=== PATIENT | female | born 1965 | race Caucasian/White ===

== ENCOUNTER → 2018-10-07 13:53 | Outpatient (CLI) | payer OTHER, SELFPAY ==
--- NOTE | 2018-10-07 | DI.MG.S_ITS ---
BILATERAL DIGITAL SCREENING MAMMOGRAM 3D/2D WITH CAD: 10/07/2018 CLINICAL: Routine screening. Family history of breast cancer. Comparison is made to exams dated: 06/28/2017 mammogram, 11/04/2015 mammogram, and 11/04/2014 mammogram - . The tissue of both breasts is heterogeneously dense. This may lower the sensitivity of mammography. Current study was also evaluated with a Computer Aided Detection (CAD) system. There are mole markers on the right breast. There is a mole marker on the left breast. There is a linear scar marker on the left breast. No significant masses, calcifications, or other findings are seen in either breast. There has been no significant interval change. IMPRESSION: NEGATIVE There is no mammographic evidence of malignancy. A 1 year screening mammogram is recommended. This exam was interpreted at Station ID: [id number]. NOTE: For mammograms, a report in lay terms will be sent to the patient. Approximately 15% of breast malignancies will not be visualized mammographically. In the management of a palpable breast mass, a negative mammogram must not discourage biopsy of a clinically suspicious lesion. Electronically Signed By: Beck Forte M.D. ecl/:10/07/2018 20:24:51 letter sent: Normal Exam ACR BI-RADS Category 1: Negative [id number]
== END ==
PROVIDERS: PCP Family Medicine; Visit Provider Family Medicine
DX: Z12.31 Encounter for screening mammogram for malignant neoplasm of breast (principal); Z80.3 Family history of malignant neoplasm of breast
CPT/HCPCS: 77063; 77067

== ENCOUNTER → 2018-11-19 08:43 | Outpatient (CLI) | payer OTHER, SELFPAY ==
[2018-11-19 09:24] LABS: Add Manual Diff / Slide Review NO; Basophils Absolute Auto 100 /uL (0-100); Basophils Percent Auto 1.2 % (0-2); Eosinophils Absolute Auto 300 /uL (0-450); Eosinophils Percent Auto 5.3 % (2-4); Hemoglobin 12.6 g/dL (12.0-16.0); Lymphocytes Absolute Auto 2200 /uL (1100-4500); Lymphocytes Percent Auto 45.2 % (25-40); Mean Corpuscular HGB Conc 33.9 % (30-36); Mean Corpuscular Hemoglobin 29.8 PG (26-34); Mean Corpuscular Volume 87.8 fL (80-100); Monocytes Absolute Auto 300 /uL (0-900); Monocytes Percent Auto 7.1 % (3-14); Neutrophils Absolute Auto 2000 /uL (1500-7000); Neutrophils Percent Auto 41.2 % (50-75); Platelet Count 185 X10^3/uL (150-400); Red Blood Cell Count 4.21 X10^6/uL (4.0-5.2); Red Cell Distribution Width 14.9 % (11.6-14.8); White Blood Cell Count 4.9 X10^3/uL (4.5-11.0)
[2018-11-19 09:39] LABS: Alanine Aminotransferase 15 IU/L (9-52); Albumin 4.4 g/dL (3.5-5.0); Albumin Globulin Ratio 1.4 (1.0-2.8); Alkaline Phosphatase 55 U/L (38-126); Aspartate Aminotransferase 17 IU/L (14-36); BUN Creatinine Ratio 25.7 (6-22); Bilirubin Total 1.3 mg/dL (0.2-1.3); Blood Urea Nitrogen 18 mg/dL (7-17); Calcium 9.9 mg/dL (8.4-10.2); Carbon Dioxide 26 mmol/L (22-32); Chloride 106 mmol/L (98-107); Cholesterol 252 mg/dL (140-199); Estimated Glomerular Filt Rate > 60.0 mL/min (>60); Globulin 3.2 g/dL (1.7-4.1); Glucose 97 mg/dL (70-100); HDL Cholesterol 55 mg/dL (40-60); HEMOLYSIS < 15 (0-50); LDL Cholesterol Calculated 180 mg/dL (<100); Potassium 3.9 mmol/L (3.4-5.1); Sodium 141 mmol/L (137-145); Total Protein 7.6 g/dL (6.3-8.2); Triglycerides 85 mg/dL (35-150)
== END ==
PROVIDERS: PCP Family Medicine; Visit Provider Family Medicine
DX: E78.2 Mixed hyperlipidemia (principal); R89.9 Unspecified abnormal finding in specimens from other organs, systems and tissues; Z13.1 Encounter for screening for diabetes mellitus
CPT/HCPCS: 36415; 80053; 80061; 84443; 85025

== ENCOUNTER → 2019-04-01 15:06 | Outpatient (CLI) | payer OTHER, SELFPAY | PROVIDERS: PCP Family Medicine; Visit Provider Family Medicine | DX: R39.89 Other symptoms and signs involving the genitourinary system (principal) | CPT/HCPCS: 87086 ==

== ENCOUNTER → 2019-04-02 09:58 | Outpatient (CLI) | payer OTHER, SELFPAY ==
[2019-04-02 10:32] LABS: Add Manual Diff / Slide Review NO; Basophils Absolute Auto 100 /uL (0-100); Basophils Percent Auto 1.1 % (0-2); Eosinophils Absolute Auto 300 /uL (0-450); Eosinophils Percent Auto 5.5 % (2-4); Hematocrit 37.6 % (36-46); Hemoglobin 12.5 g/dL (12.0-16.0); Lymphocytes Absolute Auto 1600 /uL (1100-4500); Lymphocytes Percent Auto 33.7 % (25-40); Mean Corpuscular HGB Conc 33.3 % (30-36); Mean Corpuscular Hemoglobin 29.3 PG (26-34); Mean Corpuscular Volume 87.8 fL (80-100); Monocytes Absolute Auto 300 /uL (0-900); Monocytes Percent Auto 6.2 % (3-14); Neutrophils Absolute Auto 2600 /uL (1500-7000); Neutrophils Percent Auto 53.5 % (50-75); Platelet Count 201 X10^3/uL (150-400); Red Blood Cell Count 4.28 X10^6/uL (4.0-5.2); Red Cell Distribution Width 14.3 % (11.6-14.8); White Blood Cell Count 4.9 X10^3/uL (4.5-11.0)
[2019-04-02 11:47] LABS: Alanine Aminotransferase 9 IU/L (9-52); Albumin 4.3 g/dL (3.5-5.0); Albumin Globulin Ratio 1.4 (1.0-2.8); Alkaline Phosphatase 55 U/L (38-126); Aspartate Aminotransferase 21 IU/L (14-36); Blood Urea Nitrogen 14 mg/dL (7-17); Calcium 10.3 mg/dL (8.4-10.2); Carbon Dioxide 29 mmol/L (22-32); Chloride 105 mmol/L (98-107); Cholesterol 219 mg/dL (140-199); Estimated Glomerular Filt Rate > 60.0 mL/min (>60); Glucose 95 mg/dL (70-100); HDL Cholesterol 64 mg/dL (40-60); HEMOLYSIS < 15 (0-50); LDL Cholesterol Calculated 137 mg/dL (<100); Potassium 4.5 mmol/L (3.4-5.1); Sodium 141 mmol/L (137-145); Total Protein 7.3 g/dL (6.3-8.2); Triglycerides 90 mg/dL (35-150)
== END ==
PROVIDERS: PCP Family Medicine; Visit Provider Family Medicine
DX: E78.2 Mixed hyperlipidemia (principal)
CPT/HCPCS: 36415; 80053; 80061; 84443; 85025

== ENCOUNTER → 2019-04-11 07:50 | Outpatient (CLI) | payer OTHER, SELFPAY ==
--- NOTE | 2019-04-11 07:53 | DI.US.S_ITS ---
PROCEDURE: US PELVIC COMPLETE INDICATIONS: PELVIC PAIN TECHNIQUE: Real-time scanning was performed of the pelvic organs, with image documentation. Additional endovaginal scanning was necessary due to incomplete visualization of the adnexal and endometrial structures by transabdominal scanning. COMPARISON: [facility], US, PELVIC COMPLETE, 06/16/2015, 10:45. [facility], CT, ABDOMEN/PELVIS WITH CONTRAST, 05/01/2017, 8:51. FINDINGS: Transabdominal scanning: Limited scanning through the kidneys shows no hydronephrosis. No pathologic free abdominal or pelvic fluid. Endovaginal scanning: Uterus: Uterus is normal in size at 6.5 x 3.6 x 4.0 cm. The endometrium is ill defined and no measurement was able to be obtained. Submucosal fibroid again noted which is similar in size measuring 1.8 x 1.7 x 1.6 cm. Posterior intramural fibroid redemonstrated also similar in size measuring 1.6 x 1.5 x 1.7 cm. Cyst Ovaries: Ovaries are normal in size measuring 3.0 x 1.3 x 1.7 cm on the right and 2.6 x 1.3 x 1.7 cm on the left. There are small, non-shadowing punctate echogenic foci involving the periphery of both the right and left ovaries. Simple right paraovarian cyst measuring 1.6 x 1.2 x 1.5 cm. IMPRESSION: 1. Endometrial complex is ill defined and unable to be accurately measured. 2. Stable appearance of small intramural and submucosal fibroids. 3. Punctate peripheral nodular filling echogenic foci involving the ovaries bilaterally which are likely of no clinical significance. Recommend followup ultrasound in 3 months to assess for temporal stability. 4. Simple right paraovarian cyst. Dictated by: Jonathan GATICA Interpreted: Jessica Storey MD on 04/11/2019 at 9:29 Approved by: Jessica Storey M.D. on 04/11/2019 at 14:40
== END ==
PROVIDERS: Family Provider Family Medicine; PCP Family Medicine; Visit Provider Obstetrics & Gynecology
DX: R10.2 Pelvic and perineal pain (principal); N83.291 Other ovarian cyst, right side; D25.1 Intramural leiomyoma of uterus; D25.0 Submucous leiomyoma of uterus; Z87.42 Personal history of other diseases of the female genital tract
CPT/HCPCS: 76830; 76856

== ENCOUNTER → 2019-05-01 07:43 | Outpatient (CLI) | payer OTHER, SELFPAY ==
--- NOTE | 2019-05-01 07:44 | DI.ECHO.S_ITS ---
[place] [facility]---------+ [facility] +---------+ : : [address] : : : : [id number] : : : : Phone: [phone]+ Echocardiogram Report + + :Name: JANNET BOWLES Study Date: 05/01/2019 Height: 66 in : :[facility] Weight: 154 lb : : Gender: Female BSA: 1.8 m2 : :: 1965 Age: 53 yrs BP: 118/82 mmHg: :Reason For Study: Chest pain : : Performed By: Angelica Cadet : :Referring: JOON KRISHNA : + + Interpretation Summary 1) Normal left ventricular thickness, size, wall motion, and systolic function (EF 60-65%). 2) Normal right ventricular size and function. 3) No significant valvular abnormalities. 4) No prior Echo available for comparison. Procedure: A two-dimensional transthoracic echocardiogram with color flow and Doppler was performed. The study quality was technically adequate. There is no prior echocardiogram noted for this patient. The patient was in normal sinus rhythm during the exam. Left Ventricle: The left ventricle is normal in size, wall thickness, and systolic function without any focal wall motion abnormalities. The ejection fraction is estimated to be 60-65%. Diastolic parameters suggest probable normal left ventricular diastolic function and normal filling pressures. Right Ventricle: The right ventricle grossly appears normal in size with probable normal systolic function. Atria: The left atrial size is normal. Right atrial size is normal. The interatrial septum is intact with no evidence for an atrial septal defect. Mitral Valve: The mitral valve is normal in structure and function. There is trace mitral regurgitation. Aortic Valve: The aortic valve is not well visualized. The aortic valve opens well. There is no aortic valve stenosis. No aortic regurgitation is present. Tricuspid Valve: The tricuspid valve leaflets are thin and pliable. There is mild tricuspid regurgitation. The right ventricular systolic pressure is estimated to be at least 19 mmHg based on an estimated right atrial pressure of 3 mm Hg. Pulmonic Valve: The pulmonic valve is not well seen, but is grossly normal. There is no pulmonic valvular regurgitation. Great Vessels: The aortic root is normal size. The dimensions of the ascending aorta are normal. The aortic arch is normal in size. The IVC is of normal diameter and collapses greater than 50% with a sniff. This suggests a low right atrial pressure of 3 mm Hg. Pericardium/ Pleura There is no pericardial effusion. There is no pleural effusion. MMode/2D Measurements & Calculations LVIDd: 4.6 cm Ao root diam: 3.4 cm LVIDs: 2.4 cm Aortic Jxn: 2.7 cm FS: 48.5 % asc Aorta Diam: 3.0 cm EPSS: 0.20 cm Ao Arch Diam (Prox Trans): 2.5 cm IVSd: 0.85 cm LVPWd: 0.87 cm LV phillips. diameter/BSA (cm/m^2): 2.6 LV sys. diameter/BSA (cm/m^2): 1.3 LA dimension: 3.0 cm RA long axis: 4.5 cm LA A2 area: 19.0 cm2 RA area: 13.8 cm2 LA A4 area: 14.7 cm2 RA vol: 36.3 ml LA length (vol): 4.5 cm RA : 20.3 ml/m2 LA vol: 53.0 ml IVC diam: 1.6 cm LA vol index: 29.6 ml/m2 RVDd major: 5.7 cm RVD1 (basal): 3.2 cm RVD2 (mid): 2.8 cm Doppler Measurements & Calculations Ao V2 max: 115.9 cm/sec MV E max tab: 56.8 cm/sec Ao V2 mean: 74.6 cm/sec MV A max tab: 60.5 cm/sec Ao max P.4 mmHg MV E/A: 0.94 Ao mean P.7 mmHg Med Peak E' Tab: 5.4 cm/sec Ao V2 VTI: 25.7 cm E/E' med: 10.6 Lat Peak E' Tab: 7.4 cm/sec E/E' lat: 7.7 E/e' average: 9.1 MV dec time: 0.26 sec MV P1/2t: 77.8 msec TR max tab: 201.3 cm/sec MV P1/2t max tab: 56.5 cm/sec TR max P.2 mmHg MVA(P1/2t): 2.8 cm2 PA V2 max: 65.8 cm/sec PA V2 mean: 38.8 cm/sec PA mean P.77 mmHg PA Accel Time: 0.16 sec Reading Physician:10:49 AM
--- NOTE | 2019-05-01 08:50 | PM.TREADMILL ---
Cardiac Stress Test Report Referral & Results Date Patient Seen: 05/01/19 Time Patient Seen: 08:30 Requesting provider: Tj Villagran Indication: Chest tightness Rest ECG: NSR Procedure Note: Today following both written and verbal informed consent, the patient was exercised according to a standard Tod protocol. The patient exercised for a total of 12 minutes 30 seconds achieving a maximum heart rate of 178. Patient's maximum systolic blood pressure was 180. This was an estimated 12.8 METs. No signs or symptoms of angina. No change in rhythm during the test. Minimal ST deviations that resolved rapidly with rest. Normal heart rate/BP response with exercise and rapid resolution at rest. Excellent exercise capacity (for comparison, DELIA 0% for active 55yo is only 7:30). Impression: Low probability for ischemia. Ferreira treadmill score of 7 predicts 97% survival rate at 5 years. Please note: Actual ECG tracings can be found in the PACS system.
== END ==
PROVIDERS: Family Provider Family Medicine; PCP Family Medicine; Visit Provider Family Medicine
DX: I07.1 Rheumatic tricuspid insufficiency (principal); R07.89 Other chest pain; E78.2 Mixed hyperlipidemia
CPT/HCPCS: 93016; 93017; 93018; 93306

== ENCOUNTER → 2019-05-07 11:57 | Outpatient (CLI) | payer OTHER, SELFPAY ==
[2019-05-07 12:09] LABS: Bacteria Urine None Seen; RBC Urine None Seen (0-5/HPF); WBC Urine None Seen (0-5/HPF)
[2019-05-07 12:33] LABS: BUN Creatinine Ratio 25.7 (6-22); Blood Urea Nitrogen 18 mg/dL (7-17); Calcium 10.2 mg/dL (8.4-10.2); Carbon Dioxide 27 mmol/L (22-32); Chloride 104 mmol/L (98-107); Cholesterol 274 mg/dL (140-199); Estimated Glomerular Filt Rate > 60.0 mL/min (>60); Glucose 98 mg/dL (70-100); HDL Cholesterol 68 mg/dL (40-60); HEMOLYSIS < 15 (0-50); LDL Cholesterol Calculated 182 mg/dL (<100); Sodium 141 mmol/L (137-145); Triglycerides 118 mg/dL (35-150)
[2019-05-07 12:52] LABS: Appearance Urine UA CLEAR; Bilirubin Urine UA NEGATIVE (NEGATIVE); Color Urine UA YELLOW; Glucose Urine UA NEGATIVE (Negative); Ketones Urine UA NEGATIVE (NEGATIVE); Leukocyte Esterase Urine UA NEGATIVE (NEGATIVE); Nitrite Urine UA NEGATIVE (Negative); Occult Blood Urine UA NEGATIVE (Negative); Protein Urine UA NEGATIVE (Negative); Urobilinogen Urine UA 0.2 E.U./dL (0.2)
[2019-05-07 12:53] LABS: pH Urine UA 5.5 (4.5-8.0)
[2019-05-07 12:59] LABS: Culture Indicated Urine Cult Not Indicated; Urine Comments Microscopic Normal
== END ==
PROVIDERS: PCP Family Medicine; Visit Provider Family Medicine
DX: E78.2 Mixed hyperlipidemia (principal)
CPT/HCPCS: 36415; 80048; 80061; 81001

== ENCOUNTER → 2019-11-20 15:30 | Outpatient (CLI) | payer OTHER, SELFPAY ==
[2019-11-20 16:22] LABS: Appearance Urine UA SL CLOUDY; Bilirubin Urine UA NEGATIVE (NEGATIVE); Color Urine UA YELLOW; Glucose Urine UA NEGATIVE (Negative); Ketones Urine UA NEGATIVE (NEGATIVE); Leukocyte Esterase Urine UA 2+ (NEGATIVE); Nitrite Urine UA NEGATIVE (Negative); Occult Blood Urine UA 1+ (Negative); Protein Urine UA NEGATIVE (Negative); Urobilinogen Urine UA 0.2 E.U./dL (0.2)
[2019-11-20 16:23] LABS: pH Urine UA 5.5 (4.5-8.0)
[2019-11-20 16:30] LABS: Amorphous Sediment Urine 1+; Bacteria Urine Many (>30); Culture Indicated Urine Specimen Cultured; Mucus Urine 1+ (Negative); RBC Urine 1-5/HPF (0-5/HPF); Squamous Epithelial Cell Urine 1-5 /HPF (0-5/HPF); WBC Urine >100/HPF (0-5/HPF)
== END ==
PROVIDERS: PCP Family Medicine; Referring Provider Urology; Visit Provider Urology
DX: R35.0 Frequency of micturition (principal)
CPT/HCPCS: 81001; 87077; 87086; 87186

== ENCOUNTER → 2019-12-05 09:02 | Outpatient (CLI) | payer OTHER, SELFPAY ==
[2019-12-05 09:35] LABS: RBC Urine None Seen (0-5/HPF)
[2019-12-05 10:05] LABS: Appearance Urine UA CLEAR; Bilirubin Urine UA NEGATIVE (NEGATIVE); Color Urine UA YELLOW; Glucose Urine UA NEGATIVE (Negative); Ketones Urine UA NEGATIVE (NEGATIVE); Leukocyte Esterase Urine UA NEGATIVE (NEGATIVE); Nitrite Urine UA NEGATIVE (Negative); Occult Blood Urine UA NEGATIVE (Negative); Protein Urine UA NEGATIVE (Negative); Specific Gravity Urine UA >=1.030 (1.000-1.035); Urobilinogen Urine UA 0.2 E.U./dL (0.2)
[2019-12-05 10:15] LABS: Bacteria Urine Few (2-10); Culture Indicated Urine Cult Not Indicated; Hyaline Casts Urine 0-1/LPF; Mucus Urine 1+ (Negative); Squamous Epithelial Cell Urine 1-5 /HPF (0-5/HPF); WBC Urine 0-1/HPF (0-5/HPF)
== END ==
PROVIDERS: PCP Family Medicine; Referring Provider Urology; Visit Provider Urology
DX: R35.0 Frequency of micturition (principal)
CPT/HCPCS: 81001

== ENCOUNTER → 2020-04-24 12:10 | Outpatient (CLI) | payer OTHER, SELFPAY | PROVIDERS: PCP Family Medicine; Visit Provider Physician Assistant | DX: R30.0 Dysuria (principal) | CPT/HCPCS: 87086 ==

== ENCOUNTER → 2020-05-06 09:54 | Outpatient (CLI) | payer OTHER, SELFPAY ==
[2020-05-06 10:00] LABS: Bacteria Urine None Seen
[2020-05-06 11:25] LABS: Appearance Urine UA CLEAR; Bilirubin Urine UA NEGATIVE (NEGATIVE); Color Urine UA YELLOW; Glucose Urine UA NEGATIVE (Negative); Ketones Urine UA NEGATIVE (NEGATIVE); Leukocyte Esterase Urine UA NEGATIVE (NEGATIVE); Nitrite Urine UA NEGATIVE (Negative); Occult Blood Urine UA 1+ (Negative); Protein Urine UA NEGATIVE (Negative); Urobilinogen Urine UA 0.2 E.U./dL (0.2)
[2020-05-06 11:28] LABS: pH Urine UA 5.5 (4.5-8.0)
[2020-05-06 11:30] LABS: Add Manual Diff / Slide Review NO; Basophils Absolute Auto 100 /uL (0-100); Basophils Percent Auto 0.8 % (0-2); Eosinophils Absolute Auto 300 /uL (0-450); Eosinophils Percent Auto 3.5 % (2-4); Hematocrit 33.8 % (36-46); Lymphocytes Absolute Auto 2300 /uL (1100-4500); Lymphocytes Percent Auto 30.1 % (25-40); Mean Corpuscular HGB Conc 32.5 % (30-36); Mean Corpuscular Hemoglobin 27.8 PG (26-34); Mean Corpuscular Volume 85.7 fL (80-100); Monocytes Absolute Auto 600 /uL (0-900); Neutrophils Absolute Auto 4300 /uL (1500-7000); Neutrophils Percent Auto 57.6 % (50-75); Platelet Count 310 X10^3/uL (150-400); Red Blood Cell Count 3.95 X10^6/uL (4.0-5.2); Red Cell Distribution Width 14.1 % (11.6-14.8); White Blood Cell Count 7.5 X10^3/uL (4.5-11.0)
[2020-05-06 11:33] LABS: Culture Indicated Urine Specimen Cultured; RBC Urine 1-5/HPF (0-5/HPF); WBC Urine 5-10/HPF (0-5/HPF)
[2020-05-06 12:02] LABS: Blood Urea Nitrogen 15 mg/dL (7-17); Calcium 9.8 mg/dL (8.4-10.2); Carbon Dioxide 28 mmol/L (22-32); Chloride 106 mmol/L (98-107); Cholesterol 238 mg/dL (140-199); Estimated Glomerular Filt Rate 57.4 mL/min (>60); Glucose 103 mg/dL (70-100); HDL Cholesterol 40 mg/dL (40-60); HEMOLYSIS < 15 (0-50); LDL Cholesterol Calculated 170 mg/dL (<100); Sodium 140 mmol/L (137-145); Triglycerides 142 mg/dL (35-150)
== END ==
PROVIDERS: PCP Family Medicine; Referring Provider Family Medicine; Visit Provider Family Medicine
DX: N30.01 Acute cystitis with hematuria (principal); E78.2 Mixed hyperlipidemia
CPT/HCPCS: 36415; 80048; 80061; 81001; 85025; 87086

== ENCOUNTER → 2020-05-18 14:06 | Outpatient (CLI) | payer OTHER, SELFPAY ==
--- NOTE | 2020-05-18 14:08 | DI.RAD.S_ITS ---
PROCEDURE: XR DEXA AXIAL SKELETON INDICATIONS: Routine screening COMPARISON: None. FINDINGS: This blank DEXA report has been sent in error by the PACS system. The correct and complete report will be forthcoming in 1-2 days. Thank you for your patience and understanding. Dictated by: Ro Virk MD, PhD on 05/18/2020 at 17:21 Approved by: Ro Virk MD, PhD on 05/18/2020 at 17:22
== END ==
PROVIDERS: PCP Family Medicine; Referring Provider Family Medicine; Visit Provider Family Medicine
DX: Z13.820 Encounter for screening for osteoporosis (principal); M81.0 Age-related osteoporosis without current pathological fracture; Z78.0 Asymptomatic menopausal state; Z82.62 Family history of osteoporosis
CPT/HCPCS: 77080

== ENCOUNTER → 2020-06-08 13:05 | Outpatient (CLI) | payer OTHER, SELFPAY ==
[2020-06-08 13:29] LABS: Hemoglobin A1C% w Est Avg Glu 5.8 % (4.0-6.0)
[2020-06-08 14:22] LABS: BUN Creatinine Ratio 14.6 (6-22); Blood Urea Nitrogen 13 mg/dL (7-17); Carbon Dioxide 29 mmol/L (22-32); Chloride 106 mmol/L (98-107); Cholesterol 199 mg/dL (140-199); Estimated Glomerular Filt Rate > 60.0 mL/min (>60); Glucose 103 mg/dL (70-100); HDL Cholesterol 54 mg/dL (40-60); HEMOLYSIS < 15 (0-50); LDL Cholesterol Calculated 119 mg/dL (<100); Potassium 4.6 mmol/L (3.4-5.1); Sodium 140 mmol/L (137-145); Triglycerides 128 mg/dL (35-150)
== END ==
PROVIDERS: PCP Family Medicine; Referring Provider Family Medicine; Visit Provider Family Medicine
DX: E78.2 Mixed hyperlipidemia (principal)
CPT/HCPCS: 36415; 80048; 80061; 83036

== ENCOUNTER → 2020-08-16 15:55 | Outpatient (CLI) | payer OTHER, SELFPAY ==
--- NOTE | 2020-08-16 16:01 | DI.RAD.S_ITS ---
PROCEDURE: XR HIP W PEL IF DONE RT 2V INDICATIONS: right hip pain TECHNIQUE: AP pelvis with lateral view(s) of the right hip(s). COMPARISON: None. FINDINGS: Bones: No fractures or dislocations. Pelvic ring appears intact. No suspicious bony lesions. Soft tissues: The visualized bowel gas pattern is normal. No suspicious soft tissue calcifications. IMPRESSION: No acute fracture. No osseous lesion. If symptoms and/or clinical suspicion for pathology persist, further assessment with repeat, or advanced imaging (e.g., CT, MRI, or bone scan) may be helpful for further assessment. Dictated by: Kika Ochoa M.D. on 08/16/2020 at 16:39 Approved by: Kika Ochoa M.D. on 08/16/2020 at 16:39
== END ==
PROVIDERS: PCP Nurse Practitioner Family; Referring Provider Family Medicine; Visit Provider Family Medicine
DX: S76.011A Strain of muscle, fascia and tendon of right hip, initial encounter (principal); M25.551 Pain in right hip
CPT/HCPCS: 73502

== ENCOUNTER → 2020-09-02 12:15 | Outpatient (CLI) | payer OTHER, SELFPAY ==
--- NOTE | 2020-09-02 12:16 | DI.RAD.S_ITS ---
PROCEDURE: XR LUMBAR SPINE 2-3V INDICATIONS: back pain TECHNIQUE: 3 views of the lumbar spine were acquired. COMPARISON: [facility], , L-SPINE 2-3 VIEWS, 06/16/2008, 17:41. FINDINGS: Bones: Levocurvature is present. No fracture. Multilevel degenerative endplate sclerosis and spurring. Diffuse facet arthropathy. Mild narrowing of the L3-L4 and L4-L5 disc spaces. Soft tissues: Right upper quadrant postsurgical changes from clinically reported right nephrectomy IMPRESSION: Levocurvature Mild diffuse spondylosis and facet arthropathy. This is mildly progressed since 06/16/08. Dictated by: Viral Katz M.D. on 09/02/2020 at 13:45 Approved by: Viral Katz M.D. on 09/02/2020 at 13:48
== END ==
PROVIDERS: PCP Nurse Practitioner Family; Referring Provider Nurse Practitioner Family; Visit Provider Nurse Practitioner Family
DX: M54.5 Low back pain (principal); M47.816 Spondylosis without myelopathy or radiculopathy, lumbar region; Z90.5 Acquired absence of kidney
CPT/HCPCS: 72100

== ENCOUNTER 2020-09-13 10:09 | Emergency (ER) | payer OTHER, SELFPAY ==
[2020-09-13 10:16] VITALS: BP 170/130; PULSE 117; RESP 22; TEMP 36.8; O2SAT 96; BMI 25.0
--- NOTE | 2020-09-13 10:30 | DI.MRI.S_ITS ---
PROCEDURE: MR LUMBAR SPINE WO/W CON INDICATIONS: pain, right lumbar, right hip weakness TECHNIQUE: Noncontrast sagittal T1 spin echo and T2 fast spin echo, sagittal STIR, post-Gadolinium axial T1 spin echo with fat saturation through the thoracic and lumbar spines, with additional T2 fast spin echo and post-contrast axial T1 spin echo with fat saturation sequences acquired through levels of suspected cord compression. COMPARISON: None. FINDINGS: Enhancing low T1 marrow signal intensity involving much of the L3 and L4 vertebral bodies, extending into the right side and a pedicle in the L4 vertebral body. Associated marrow edema. Vertebral body heights are maintained. Normal alignment of the lumbar spine. There are spondylitic and spinal arthropathic changes from L3-L4 through L5-S1, worst at L4-L5 where there is moderate spinal canal and subarticular zone stenosis as well as mild neural foraminal narrowing. Prevertebral and paraspinous soft tissues are within normal limits. There is enhancing retroperitoneal lymphadenopathy. IMPRESSION: Retroperitoneal lymphadenopathy and enhancing lesions within the L3 and L4 vertebral bodies, consistent with metastatic disease. A nonemergent more comprehensive restaging workup to include a CT of the chest/abdomen/pelvis or full-body PET-CT. Dictated by: Papo Boothe M.D. on 09/13/2020 at 12:17 Approved by: Papo Boothe M.D. on 09/13/2020 at 12:22
--- NOTE | 2020-09-13 11:06 | ED.EXTPRO ---
HPI - Extremity Problem General Chief complaint: Extremity Problem,Nontraumatic Stated complaint: Right hip pain, lower right side back pain Time Seen by Provider: 09/13/20 10:15 Source: patient Mode of arrival: Ambulatory Limitations: no limitations History of Present Illness HPI Narrative: 54-year-old female nonsmoker with history of renal and bladder cancer presents with her in the chief complaint of worsening low back and right hip pain in the absence of any injury over the past weeks to months. She thinks it may have all started when working in the yard, but denies any memorable or traumatic event. She denies fever or chills. She states the pain does not radiate down her leg. She denies any numbness, tingling or weakness. She denies any bowel or bladder control issues. She denies any drop foot. She states that the pain is tolerable when sitting still but is excruciating when she does activities that causes her to flex at the hip such as putting shoes or underwear on. She has gone through PT without much help and is expecting an orthopedic consultation in the near future. She states it is burning and stabbing and 10/10 when she moves Quality: stabbing Related Data Home Medications Medication Instructions Recorded Confirmed acetaminophen 500 mg tablet 500 mg PO Q6H PRN 09/02/20 09/02/20 albuterol sulfate 90 mcg/actuation See Rx Instructions .ROUTE 09/02/20 aerosol inhaler .COMPLEX PRN g Previous Rx's Medication Instructions Recorded triamcinolone acetonide 0.025 % 1 applictn TOP BID PRN #15 gram 10/17/19 topical ointment epinephrine 0.3 mg/0.3 mL 0.3 mg IM SEE INSTRUCTIONS #1 kit 03/22/20 injection, auto-injector pravastatin 10 mg tablet 10 mg PO DAILY #90 tab 06/23/20 hydrocodone-acetaminophen 1 tab PO Q4-6H PRN #20 tab 09/13/20 ondansetron 4 mg PO TID-QID PRN #10 tab 09/13/20 Allergies Allergy/AdvReac Type Severity Reaction Status Date / Time peanut Allergy Severe Anaphylaxis Verified 09/02/20 11:18 sulfamethoxazole Allergy Severe itching Verified 09/02/20 11:18 [From ] trimethoprim [From ] Allergy Severe itching Verified 09/02/20 11:18 Sulfa (Sulfonamide Allergy hives and Verified 09/02/20 11:18 Antibiotics) swelling Review of Systems Constitutional Constitutional: Denies chills, Denies fatigue, Denies fever(s), Denies frequent falls, Denies lethargy and Denies weakness Eyes Eyes: Denies change in vision, Denies eye discharge, Denies irritation and Denies loss of vision ENT Ears, Nose, Mouth, and Throat: Denies change in voice, Denies dizziness, Denies neck pain, Denies sore throat and Denies throat swelling Cardiovascular Cardiovascular: Denies chest pain, Denies irregular heart rhythm, Denies lightheadedness, Denies palpitations, Denies dyspnea, Denies dyspnea on exertion and Denies orthopnea Respiratory Respiratory: Denies cough, Denies dyspnea, Denies dyspnea on exertion and Denies wheezing Gastrointestinal Gastrointestinal: Denies abdominal pain, Denies change in bowel habits, Denies diarrhea, Denies nausea and Denies vomiting Musculoskeletal Musculoskeletal: Reports back pain, Denies neck pain and Denies numbness Integumentary/Breasts Skin/Breast: Denies pruritus, Denies erythema, Denies rash and Denies wounds Neurologic Neurologic: Denies behavioral changes, Denies confusion, Denies dizziness, Denies frequent falls, Denies loss of vision, Denies numbness and Denies weakness Psychiatric Psychiatric: Denies anxiety, Denies behavioral changes, Denies confusion, Denies depression, Denies homicidal ideation and Denies suicidal ideation Endocrine Endocrine: Denies fatigue, Denies flushing and Denies palpitations Hematologic/Lymphatic Hematologic/Lymphatic: Denies easy bruising Allergic/Immunologic Allergic/Immunologic: Denies urticaria, Denies throat swelling and Denies wheezing Patient History Medical History Asthma Cancer of right renal pelvis Family history of melanoma Lumbar pain Sacroiliac joint pain Strain of right hip Umbilical hernia (02/2020) UTI (urinary tract infection) Surgical History H/O right nephrectomy History of third molar tooth extraction (1981) Status post delivery (03/05/89) Status post delivery (01/21/91) Social History Smoking Status: Never smoker Smoking Status: Never smoker alcohol intake frequency: 0-2 drinks per day Substance Use Type: does not use Exam Narrative Exam Narrative: GENERAL: [54] year old patient appears stated age. Well-nourished, well-developed patient, in obvious distress, walking causes significant pain, she is using a cane to ambulate HEAD: Atraumatic. Normocephalic. EYES: Pupils equal round and reactive. Extraocular motions intact. No scleral icterus. No injection or drainage. ENT: Nose without bleeding, purulent drainage. Throat without erythema, tonsillar hypertrophy or exudate. Airway patent. NECK: Trachea midline. Non tender CARDIOVASCULAR: Regular rate and rhythm without murmurs, gallops, or rubs. RESPIRATORY: Clear to auscultation. Breath sounds equal bilaterally. No wheezes, rales, or rhonchi. GASTROINTESTINAL: Abdomen soft, non-tender, nondistended. EXTREMITIES: No edema or joint tenderness. BACK: Nontender without deformity or crepitance. No flank tenderness. NEURO: AOx3. SKIN: No rash or erythema of visible areas Initial Vital Signs Initial Vital Signs: Vital Signs Temperature 98.3 F 09/13/20 10:16 Pulse Rate 117 H 09/13/20 10:16 Respiratory Rate 22 09/13/20 10:16 Blood Pressure 170/130 H 09/13/20 10:16 Pulse Oximetry 96 09/13/20 10:16 Course Orders Ordered: Discontinued Medications Dexamethasone (Dexamethasone 10 Mg/Ml Vial) 10 mg IV NOW ONE Stop: 09/13/20 10:31 Last Admin: 09/13/20 12:10 Dose: 10 mg Documented by: KAYLA Sodium Chloride (Normal Saline 0.9%) 1,000 mls @ 1,000 mls/hr IV BOLUS ONE Stop: 09/13/20 11:29 Last Infusion: 09/13/20 13:33 Dose: 0 mls/hr Documented by: Admin: 09/13/20 12:11 Dose: 1,000 mls/hr Documented by: KAYLA Consultations Consultation #1: discussed MRI findings (and pushed images to ) with her surgeon at . He will reach out to her tomorrow and rapidly get her in with medical oncology. Vital Signs Vital signs: Vital Signs - 8 hr 09/13/20 10:16 Temperature 98.3 F Pulse Rate 117 H Respiratory Rate 22 Blood Pressure 170/130 H Pulse Oximetry 96 MDM - Extremity (Nontraumatic) Lab Data Result diagrams: 09/13/20 11:58 09/13/20 11:58 Labs: Lab Results 09/13/20 09/13/20 Range/Units 11:58 11:58 WBC 6.9 (4.5-11.0) X10^3/uL RBC 4.21 (4.0-5.2) X10^6/uL Hgb 11.2 L (12.0-16.0) g/dL Hct 34.5 L (36-46) % MCV 82.0 (80-100) fL MCH 26.7 (26-34) PG MCHC 32.5 (30-36) % RDW 16.4 H (11.6-14.8) % Plt Count 288 (150-400) X10^3/uL Neut % (Auto) 67.9 (50-75) % Lymph % (Auto) 22.6 L (25-40) % [place] % (Auto) 7.2 (3-14) % Eos % (Auto) 1.7 L (2-4) % Baso % (Auto) 0.6 (0-2) % Neut # (Auto) 4700 (9372-5868) /uL Lymph # (Auto) 1600 (5159-4390) /uL [place] # (Auto) 500 (0-900) /uL Eos # (Auto) 100 (0-450) /uL Baso # (Auto) 0 (0-100) /uL Sodium 137 (137-145) mmol/L Potassium 4.2 (3.4-5.1) mmol/L Chloride 103 (98-107) mmol/L Carbon Dioxide 25 (22-32) mmol/L BUN 16 (7-17) mg/dL Creatinine 0.95 (0.52-1.04) mg/dL Estimated GFR > 60.0 (>60) mL/min BUN/Creatinine Ratio 16.8 (6-22) Glucose 113 H (70-100) mg/dL Calcium 10.5 H (8.4-10.2) mg/dL Imaging Data Lumbar MRI: Radiologist's Impression: Noemy Walton F [address] [place] [id number] Resonance ReportSigned Patient: Noemy Walton RMR#: [id number]: 1965Acct:[id number]/Sex: 54 / FDate of Service: 09/13/20Loc: EDAccession Number: [id number] Procedure: MR lumbar spine wo/w con Ordering Provider: Noé Bell D.O. PROCEDURE: MR LUMBAR SPINE WO/W CON INDICATIONS: pain, right lumbar, right hip weakness TECHNIQUE: Noncontrast sagittal T1 spin echo and T2 fast spin echo, sagittal STIR, post-Gadolinium axial T1 spin echo with fat saturation through the thoracic and lumbar spines, with additional T2 fast spin echo and post-contrast axial T1 spin echo with fat saturation sequences acquired through levels of suspected cord compression. COMPARISON: None. FINDINGS: Enhancing low T1 marrow signal intensity involving much of the L3 and L4 vertebral bodies, extending into the right side and a pedicle in the L4 vertebral body. Associated marrow edema. Vertebral body heights are maintained. Normal alignment of the lumbar spine. There are spondylitic and spinal arthropathic changes from L3-L4 through L5-S1, worst at L4-L5 where there is moderate spinal canal and subarticular zone stenosis as well as mild neural foraminal narrowing. Prevertebral and paraspinous soft tissues are within normal limits. There is enhancing retroperitoneal lymphadenopathy. IMPRESSION: Retroperitoneal lymphadenopathy and enhancing lesions within the L3 and L4 vertebral bodies, consistent with metastatic disease. A nonemergent more comprehensive restaging workup to include a CT of the chest/abdomen/pelvis or full-body PET-CT. Dictated by: Papo Boothe M.D. on 09/13/2020 at 12:17 Approved by: Papo Boothe M.D. on 09/13/2020 at 12:22 Discharge Plan Departure Patient Disposition: Home Clinical Impression: Malignant neoplasm metastatic to lumbar spine with unknown primary site Instructions: DI for Low Back Pain Activity Restrictions/Additional Instructions: *You have been diagnosed with [lumbar pain with an MRI suggesting metastatic disease] *What to do: *Take medications as directed: Prescriptions for pain control and nausea medication to [facility] and [facility] *I spoke with Dr. Horn and he will call you tomorrow to coordinate further workup. *Return to ER if you should have any new, worsening or concerning symptoms, such as [numbness, tingling, weakness, loss of control of bowel or bladder or other bothersome symptoms] Prescriptions: New hydrocodone-acetaminophen 5-325 mg tablet 1 tab PO Q4-6H PRN (Reason: pain) Qty: 20 RF: 0 ondansetron 4 mg tablet,disintegrating 4 mg PO TID-QID PRN (Reason: nausea and vomiting) Qty: 10 RF: 0 No Action triamcinolone acetonide 0.025 % ointment 1 applictn TOP BID PRN (Reason: excema) Qty: 15 RF: 5 epinephrine [EpiPen 2-Darell] 0.3 mg/0.3 mL auto-injector 0.3 mg IM SEE INSTRUCTIONS Qty: 1 RF: 1 pravastatin 10 mg tablet 10 mg PO DAILY Qty: 90 RF: 2 albuterol sulfate 90 mcg/actuation HFA aerosol inhaler See Rx Instructions .ROUTE .COMPLEX PRNRF: 0 acetaminophen [Tylenol Extra Strength] 500 mg tablet 500 mg PO Q6H PRNRF: 0 Referrals: Howard Marcum ARNP [Primary Care Provider] -
[2020-09-13 11:47] VITALS: PULSE 104; O2SAT 98
[2020-09-13 11:48] VITALS: BP 114/74; PULSE 100; O2SAT 98
[2020-09-13 12:00] VITALS: PULSE 101; O2SAT 98
[2020-09-13 12:01] VITALS: BP 116/56; PULSE 93; O2SAT 98
[2020-09-13] MEDS: DEXAMETHASONE 10 MG/ML VIAL IV (12:10)
[2020-09-13] MEDS: SODIUM CHLORIDE 0.9% 1,000 ML 1000 ML IV (12:11)
[2020-09-13 12:22] LABS: BUN Creatinine Ratio 16.8 (6-22); Blood Urea Nitrogen 16 mg/dL (7-17); Calcium 10.5 mg/dL (8.4-10.2); Carbon Dioxide 25 mmol/L (22-32); Chloride 103 mmol/L (98-107); Estimated Glomerular Filt Rate > 60.0 mL/min (>60); Glucose 113 mg/dL (70-100); Potassium 4.2 mmol/L (3.4-5.1); Sodium 137 mmol/L (137-145)
[2020-09-13 12:23] LABS: Add Manual Diff / Slide Review NO; Basophils Absolute Auto 0 /uL (0-100); Basophils Percent Auto 0.6 % (0-2); Eosinophils Absolute Auto 100 /uL (0-450); Eosinophils Percent Auto 1.7 % (2-4); Hematocrit 34.5 % (36-46); Hemoglobin 11.2 g/dL (12.0-16.0); Lymphocytes Absolute Auto 1600 /uL (1100-4500); Lymphocytes Percent Auto 22.6 % (25-40); Mean Corpuscular HGB Conc 32.5 % (30-36); Mean Corpuscular Hemoglobin 26.7 PG (26-34); Monocytes Absolute Auto 500 /uL (0-900); Monocytes Percent Auto 7.2 % (3-14); Neutrophils Absolute Auto 4700 /uL (1500-7000); Neutrophils Percent Auto 67.9 % (50-75); Platelet Count 288 X10^3/uL (150-400); Red Blood Cell Count 4.21 X10^6/uL (4.0-5.2); Red Cell Distribution Width 16.4 % (11.6-14.8); White Blood Cell Count 6.9 X10^3/uL (4.5-11.0)
[2020-09-13 13:00] VITALS: BP 152/70; PULSE 70; RESP 18; O2SAT 99
== END 2020-09-13 13:44 | disposition home or self-care (01) ==
PROVIDERS: Emergency Provider Emergency Medicine; PCP Nurse Practitioner Family
DX: C79.51 Secondary malignant neoplasm of bone (principal); M54.5 Low back pain; M25.551 Pain in right hip
CPT/HCPCS: 36415; 72158; 80048; 85025; 96361; 96374; 99284; A9579; J1100

== ENCOUNTER → 2020-09-22 09:24 | Outpatient (CLI) | payer OTHER, SELFPAY ==
[2020-09-22 09:32] LABS: Bacteria Urine None Seen; RBC Urine None Seen (0-5/HPF)
[2020-09-22 10:27] LABS: Hematocrit 33.5 % (36-46); Mean Corpuscular HGB Conc 32.7 % (30-36); Mean Corpuscular Hemoglobin 26.8 PG (26-34); Mean Corpuscular Volume 81.9 fL (80-100); Platelet Count 291 X10^3/uL (150-400); Red Blood Cell Count 4.09 X10^6/uL (4.0-5.2); Red Cell Distribution Width 16.4 % (11.6-14.8)
[2020-09-22 10:42] LABS: Appearance Urine UA CLEAR; Bilirubin Urine UA NEGATIVE (NEGATIVE); Color Urine UA YELLOW; Glucose Urine UA NEGATIVE (Negative); Ketones Urine UA NEGATIVE (NEGATIVE); Leukocyte Esterase Urine UA NEGATIVE (NEGATIVE); Nitrite Urine UA NEGATIVE (Negative); Occult Blood Urine UA NEGATIVE (Negative); Protein Urine UA NEGATIVE (Negative); Urobilinogen Urine UA 0.2 E.U./dL (0.2)
[2020-09-22 10:43] LABS: Culture Indicated Urine Cult Not Indicated; WBC Urine 0-1/HPF (0-5/HPF)
[2020-09-22 10:47] LABS: Alanine Aminotransferase 9 IU/L (<35); Albumin 4.1 g/dL (3.5-5.0); Albumin Globulin Ratio 1.1 (1.0-2.8); Alkaline Phosphatase 90 U/L (38-126); Aspartate Aminotransferase 21 IU/L (14-36); BUN Creatinine Ratio 14.9 (6-22); Bilirubin Total 0.4 mg/dL (0.2-1.3); Blood Urea Nitrogen 14 mg/dL (7-17); Calcium 10.2 mg/dL (8.4-10.2); Carbon Dioxide 29 mmol/L (22-32); Chloride 104 mmol/L (98-107); Cholesterol 236 mg/dL (140-199); Estimated Glomerular Filt Rate > 60.0 mL/min (>60); Globulin 3.6 g/dL (1.7-4.1); Glucose 110 mg/dL (70-100); HDL Cholesterol 49 mg/dL (40-60); HEMOLYSIS < 15 (0-50); LDL Cholesterol Calculated 164 mg/dL (<100); Sodium 137 mmol/L (137-145); Total Protein 7.7 g/dL (6.3-8.2); Triglycerides 117 mg/dL (35-150)
--- NOTE | 2020-09-22 10:58 | DI.CT.S_ITS ---
PROCEDURE: CT CHEST ABD PEL W CON INDICATIONS: MALIGNANT NEOPLASM OF RIGHT RENAL PELVIS TECHNIQUE: After the administration of oral and intravenous contrast, 5 mm thick sections acquired from the lung apices to the symphysis. 5 mm coronal and sagittal reformats were performed, with additional 7 mm coronal MIP reformats through the lungs. For radiation dose reduction, the following was used: automated exposure control, adjustment of mA and/or kV according to patient size. COMPARISON: Merged With [facility], CR, XR LUMBAR SPINE 2-3V, 09/02/2020, 12:34. Merged With [facility], MR, MR LUMBAR SPINE WO/W CON, 09/13/2020, 11:09. Merged With [facility], CT, ABDOMEN/PELVIS WITH CONTRAST, 05/01/2017, 8:51. FINDINGS: Image quality: Excellent. CHEST: Lungs and pleura: There are multiple lung masses in lower lobes bilaterally, new since 05/01/2017, consistent with pulmonary metastasis. For example, a 1.7 cm mass is identified in the right lower lobe posterior medially. There is a 1.9 cm mass in the posterior medial aspect of the left lower lobe. Small vague ground-glass densities in upper lobes bilaterally are indeterminate but most likely inflammatory or infectious in nature. No pleural effusions or pneumothorax. Central and peripheral airways appear patent and normal in caliber. Mediastinum: Heart size is normal. No pericardial effusion. No mediastinal or hilar adenopathy by size criteria. Thoracic aorta and central pulmonary arteries are normal in size. Esophagus is normal in caliber. There is a small hiatal hernia. Chest wall: No axillary or supraclavicular adenopathy by size criteria. Thyroid gland is normal. ABDOMEN: Solid organs: Liver is normal in size and enhancement. Gallbladder is normal. Biliary system is non dilated. Pancreas enhances normally. Spleen is normal in size and enhancement. No adrenal nodules. There is right nephrectomy. Left kidney is normal in size. No left renal mass, stone or hydronephrosis. Peritoneum and bowel: Bowel loops demonstrate normal wall thickness and caliber. No free fluid or air. Nodes and vessels: There is new retroperitoneal lymphadenopathy since 05/01/2017, consistent with metastasis. For instance, there is a 1.8 x 2.7 cm left para-aortic lymph node. A 1.6 x 3.2 cm retrocaval lymph node is identified. There is also bilateral common iliac and left external iliac lymphadenopathy consistent with metastasis. For example, a right common iliac lymph node measures 1.5 x 2.4 cm. A 1.6 x 1.8 cm left common iliac lymph node is present. A couple of left external iliac lymph nodes measure 1.3 x 1.8 cm and 1.3 x 2.5 cm. Aorta is normal in size. There is mild aortic atherosclerosis. There is compression and anterior displacement of inferior vena cava by the enlarged retrocaval lymph node. Miscellaneous: Small fat containing umbilical hernia. PELVIS: Genitourinary: Bladder wall thickness is normal. Uterus is myomatous. There is a 1.8 cm exophytic, partially calcified fibroid in the right lateral aspect of the uterine fundus. A 2.2 cm masslike density adjacent to the left axis noted, probably an exophytic fibroid. There is a enlarged left gonadal vein coursing along the left pelvis. Miscellaneous: No inguinal hernias or adenopathy. Bones: Mixed lytic and blastic appearance of L3 and L4 consistent with osseous metastasis. No vertebral body compression fractures. IMPRESSION: 1. Multiple lung masses in lower lobes bilaterally consistent with pulmonary metastases. 2. Retroperitoneal, bilateral common iliac and left external iliac lymphadenopathy consistent with bhanu metastasis. 3. Mixed lytic and sclerotic appearance of L3 and L4 consistent with osseous metastasis. Dictated by: Silvia Ching M.D. on 09/22/2020 at 11:35 Approved by: Silvia Ching M.D. on 09/22/2020 at 17:37
== END ==
PROVIDERS: PCP Nurse Practitioner Family; Referring Provider Urology; Visit Provider Urology
DX: C65.1 Malignant neoplasm of right renal pelvis (principal); C67.9 Malignant neoplasm of bladder, unspecified; R35.0 Frequency of micturition; Z90.5 Acquired absence of kidney; Z13.6 Encounter for screening for cardiovascular disorders; C78.02 Secondary malignant neoplasm of left lung; C78.01 Secondary malignant neoplasm of right lung
CPT/HCPCS: 36415; 71260; 74177; 80053; 80061; 81001; 85027; Q9967

== ENCOUNTER → 2020-09-23 15:24 | Outpatient (CLI) | payer OTHER, SELFPAY ==
[2020-09-23 15:49] LABS: Hemoglobin A1C% w Est Avg Glu 5.8 % (4.0-6.0)
== END ==
PROVIDERS: PCP Nurse Practitioner Family; Visit Provider Nurse Practitioner Family
DX: R73.9 Hyperglycemia, unspecified (principal)
CPT/HCPCS: 83036

== ENCOUNTER → 2020-09-28 13:00 | Outpatient (CLI) | payer OTHER, SELFPAY ==
--- NOTE | 2020-09-28 | DI.NM.S_ITS ---
PROCEDURE: NM BONE SCAN WHOLE BODY RADIOPHARMACEUTICAL: 19.8 mCi Tc-99m MDP IV. INDICATIONS: CANCER OF BLADDER RENAL PELVIS TECHNIQUE: Delayed whole-body scintigrams were obtained approximately 3-4 hours after intravenous injection of radiotracer. Anterior and posterior views were acquired from vertex to feet. Additional left and right oblique views of the pelvis and spine were obtained. COMPARISON: [facility], CT, CT CHEST ABD PEL W CON, 09/22/2020, 10:42. FINDINGS: Physiologic uptake is noted within the left kidney and bladder. There appears to be minimal hydronephrosis within the left kidney. The right kidney is absent. There is increased uptake within the lower lumbar vertebral bodies most notably L3 and L4 corresponding to lesions identified on CT exam. Increased uptake is noted within the knees as well as small bones of the feet most suggestive of degenerative change. IMPRESSION: Increased uptake within the lower lumbar spine corresponding to lytic destructive lesions on CT highly suggestive of metastatic disease. Dictated by: Ami Anderson M.D. on 09/28/2020 at 16:59 Approved by: Ami Anderson M.D. on 09/28/2020 at 17:02
== END ==
PROVIDERS: PCP Nurse Practitioner Family; Referring Provider Internal Medicine Medical Oncology; Visit Provider Internal Medicine Medical Oncology
DX: C67.9 Malignant neoplasm of bladder, unspecified (principal); C65.1 Malignant neoplasm of right renal pelvis; Z01.818 Encounter for other preprocedural examination; Z20.822 Contact with and (suspected) exposure to COVID-19; Z90.5 Acquired absence of kidney
CPT/HCPCS: 78306; 87635; A9503

== ENCOUNTER → 2020-09-28 13:32 | Outpatient (CLI) | payer OTHER, SELFPAY ==
[2020-09-28 14:28] LABS: COVID19 -Nasal RAPID Negative (Negative)
== END ==
PROVIDERS: PCP Nurse Practitioner Family; Visit Provider Nurse Practitioner Family
DX: Z01.818 Encounter for other preprocedural examination (principal); Z20.822 Contact with and (suspected) exposure to COVID-19
CPT/HCPCS: 87635

== ENCOUNTER 2020-10-07 10:48 | Emergency (ER) | payer OTHER, SELFPAY ==
[2020-10-07 10:53] VITALS: BP 130/74; PULSE 99; RESP 14; TEMP 36.6; O2SAT 97; BMI 24.1
--- NOTE | 2020-10-07 10:59 | DI.US.S_ITS ---
PROCEDURE: US PERIPH VENOUS LOW EXTREM BI INDICATIONS: RECENT CANCER DIAGNOSIS; LEG PAIN TECHNIQUE: Real-time imaging, as well as color and pulse Doppler interrogation, were performed of the deep veins of both legs from the inguinal ligament to the popliteal fossa. COMPARISON: None. FINDINGS: Right: The common femoral, femoral and popliteal veins are normally compressible, and free of intraluminal thrombus. Color and pulse Doppler demonstrate normal phasic intravascular flow. There is normal augmentation response to distal compression maneuver. Left: The common femoral, femoral and popliteal veins are normally compressible, and free of intraluminal thrombus. Color and pulse Doppler demonstrate normal phasic intravascular flow. There is normal augmentation response to distal compression maneuver. IMPRESSION: No evidence of deep vein thrombosis involving either the right or left lower extremities. Dictated by: Ro Virk MD, PhD on 10/07/2020 at 12:07 Approved by: Ro Virk MD, PhD on 10/07/2020 at 12:07
--- NOTE | 2020-10-07 11:06 | ED.GENADULT ---
HPI - General Adult General Chief complaint: Extremity Problem,Nontraumatic Stated complaint: referred by oncologist to r/o blood clot Time Seen by Provider: 10/07/20 10:56 Source: patient Mode of arrival: Ambulatory Limitations: no limitations History of Present Illness HPI narrative: Patient is a 54-year-old female who does have cancer. 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 She is followed by oncology the [facility]. She recently had a recurrence of the cancer. She contacted her oncologist today because she was describing discomfort in her right lower extremity. She has no chest pain or shortness of breath. She was told to come to the emergency department for evaluation and have an ultrasound performed to rule out a blood clot. She has never had a blood clot in the past. Related Data Home Medications Medication Instructions Recorded Confirmed acetaminophen 500 mg tablet 500 mg PO Q6H PRN 09/02/20 09/02/20 albuterol sulfate 90 mcg/actuation See Rx Instructions .ROUTE 09/02/20 aerosol inhaler .COMPLEX PRN g Previous Rx's Medication Instructions Recorded triamcinolone acetonide 0.025 % 1 applictn TOP BID PRN #15 gram 10/17/19 topical ointment epinephrine 0.3 mg/0.3 mL 0.3 mg IM SEE INSTRUCTIONS #1 kit 03/22/20 injection, auto-injector pravastatin 10 mg tablet 10 mg PO DAILY #90 tab 06/23/20 hydrocodone-acetaminophen 1 tab PO Q4-6H PRN #20 tab 09/13/20 ondansetron 4 mg PO TID-QID PRN #10 tab 09/13/20 cyclobenzaprine 10 mg PO TID PRN #20 tab 09/15/20 handicap placard #2 ea 09/28/20 Allergies Allergy/AdvReac Type Severity Reaction Status Date / Time peanut Allergy Severe Anaphylaxis Verified 10/07/20 10:57 sulfamethoxazole Allergy Severe itching Verified 10/07/20 10:57 [From ] trimethoprim [From ] Allergy Severe itching Verified 10/07/20 10:57 Sulfa (Sulfonamide Allergy hives and Verified 10/07/20 10:57 Antibiotics) swelling Review of Systems Constitutional Constitutional: Denies fever(s) and Denies headache(s) ENT Ears, Nose, Mouth, and Throat: Denies headache(s) Cardiovascular Cardiovascular: Denies chest pain and Denies dyspnea Respiratory Respiratory: Denies cough and Denies dyspnea Gastrointestinal Gastrointestinal: Denies abdominal pain, Denies nausea and Denies vomiting Genitourinary Genitourinary: Denies dysuria Genitourinary: Denies dysuria Musculoskeletal Comments: Right lower extremity pain Integumentary/Breasts Skin/Breast: Denies rash Neurologic Neurologic: Denies behavioral changes and Denies headache(s) Psychiatric Psychiatric: Denies behavioral changes Hematologic/Lymphatic On Anticoagulants: No Allergic/Immunologic Allergic/Immunologic: Denies urticaria Patient History Medical History Allergies Asthma Cancer of right renal pelvis Eczema Family history of melanoma Fibroids History of kidney cancer (~2018) Lumbar pain Ovarian cyst Sacroiliac joint pain Strain of right hip Umbilical hernia (02/2020) UTI (urinary tract infection) Wears glasses Surgical History (Updated 09/14/20 @ 20:46 by Ellyn Sinha) Anesthesia Bladder tumor (~2019) H/O right nephrectomy (~07/24/19) History of biopsy (~2018) History of kidney surgery (~12/2019) History of third molar tooth extraction (1981) Status post delivery (03/05/89) Status post delivery (01/21/91) Family History (Updated 09/14/20 @ 20:51 by Ellyn Sinha) Father Cancer Hyperlipidemia Hypertension Mother Diabetes mellitus History of heart disease Hypertension Hyperlipidemia TIA (transient ischemic attack) Breast cancer Brother Hypertension Brother Hypertension Brother Hypertension Sister Cancer Hyperlipidemia Hypertension Sister Diabetes mellitus Hyperlipidemia Hypertension Grandfather History of heart disease Grandmother History of heart disease Social History Smoking Status: Never smoker Smoking Status: Never smoker alcohol intake frequency: 0-2 drinks per day Substance Use Type: does not use Exam Initial Vital Signs Initial Vital Signs: Vital Signs Temperature 97.8 F 10/07/20 10:53 Pulse Rate 99 H 10/07/20 10:53 Respiratory Rate 14 10/07/20 10:53 Blood Pressure 130/74 10/07/20 10:53 Pulse Oximetry 97 10/07/20 10:53 Const General: cooperative and comfortable Limitations: mental status not altered HENMT Head: normal to inspection and normocephalic Resp Effort & Inspection: normal respiratory effort Cardio Rate: regular rate Skin Lesions: no lesions Rashes: no rashes Extrem General: normal to inspection, capillary refill normal and No edema Psych Appearance: grossly normal and well kempt Course Orders Ordered: ED Orders 10/07/20 10:59 US periph venous low extrem bi Stat Vital Signs Vital signs: Vital Signs - 8 hr 10/07/20 10:53 Temperature 97.8 F Pulse Rate 99 H Respiratory Rate 14 Blood Pressure 130/74 Pulse Oximetry 97 Medical Decision Making Imaging Data US - DVT: Radiologist's Impression: [address] [id number] ReportSigned Patient: Noemy Walton RMR#: [id number]: [id number]:[id number]/Sex: 54 / FDate of Service: 10/07/20Loc: EDAccession Number: [id number] Procedure: US periph venous low extrem bi Ordering Provider: Surinder Winkler D.O. PROCEDURE: US PERIPH VENOUS LOW EXTREM BI INDICATIONS: RECENT CANCER DIAGNOSIS; LEG PAIN TECHNIQUE: Real-time imaging, as well as color and pulse Doppler interrogation, were performed of the deep veins of both legs from the inguinal ligament to the popliteal fossa. COMPARISON: None. FINDINGS: Right: The common femoral, femoral and popliteal veins are normally compressible, and free of intraluminal thrombus. Color and pulse Doppler demonstrate normal phasic intravascular flow. There is normal augmentation response to distal compression maneuver. Left: The common femoral, femoral and popliteal veins are normally compressible, and free of intraluminal thrombus. Color and pulse Doppler demonstrate normal phasic intravascular flow. There is normal augmentation response to distal compression maneuver. IMPRESSION: No evidence of deep vein thrombosis involving either the right or left lower extremities. Dictated by: Ro Virk MD, PhD on 10/07/2020 at 12:07 Approved by: Ro Virk MD, PhD on 10/07/2020 at 12:07 [facility] Narrative Medical decision making narrative: Ultrasound shows no signs of DVT. The pain that she describes today is on the front of her right lower extremity. I have low suspicion that this is vascular in origin are more suspicion this is muscular. We did discuss some stretching exercises. I feel we can hold on further workup for now. Will discharge home with return precautions. She expressed understanding and agreement. Discharge Plan Departure Patient Disposition: Home Clinical Impression: Leg pain, anterior Instructions: DI for Muscle Spasm Activity Restrictions/Additional Instructions: Recommend you continue all of your medications as directed. Contact your primary provider for a follow-up. Keep all of your scheduled cancer appointments. Return to the emergency department for any new or worsening symptoms Prescriptions: No Action triamcinolone acetonide 0.025 % ointment 1 applictn TOP BID PRN (Reason: excema) Qty: 15 RF: 5 epinephrine [EpiPen 2-Darell] 0.3 mg/0.3 mL auto-injector 0.3 mg IM SEE INSTRUCTIONS Qty: 1 RF: 1 pravastatin 10 mg tablet 10 mg PO DAILY Qty: 90 RF: 2 (DME) handicap placard See Rx Instructions .Route .MEDSUPPLY Qty: 2 RF: 0 albuterol sulfate 90 mcg/actuation HFA aerosol inhaler See Rx Instructions .ROUTE .COMPLEX PRNRF: 0 acetaminophen [Tylenol Extra Strength] 500 mg tablet 500 mg PO Q6H PRNRF: 0 hydrocodone-acetaminophen 5-325 mg tablet 1 tab PO Q4-6H PRN (Reason: pain) Qty: 20 RF: 0 ondansetron 4 mg tablet,disintegrating 4 mg PO TID-QID PRN (Reason: nausea and vomiting) Qty: 10 RF: 0 cyclobenzaprine 10 mg tablet 10 mg PO TID PRN (Reason: muscle spasm) Qty: 20 RF: 0 Referrals: Howard Marcum ARNP [Primary Care Provider] -
[2020-10-07 12:45] VITALS: BP 119/72; PULSE 89; RESP 14; O2SAT 98
== END 2020-10-07 12:47 | disposition home or self-care (01) ==
PROVIDERS: Emergency Provider Emergency Medicine; PCP Nurse Practitioner Family; Referring Provider Internal Medicine Medical Oncology
DX: M79.604 Pain in right leg (principal)
CPT/HCPCS: 93970; 99283

== ENCOUNTER → 2020-10-13 09:51 | Outpatient (CLI) | payer OTHER, SELFPAY ==
[2020-10-13 12:02] LABS: COVID19 -Nasal RAPID Negative (Negative)
== END ==
PROVIDERS: PCP Nurse Practitioner Family; Visit Provider Physician Assistant
DX: Z01.812 Encounter for preprocedural laboratory examination (principal); Z20.822 Contact with and (suspected) exposure to COVID-19
CPT/HCPCS: 87635

== ENCOUNTER → 2020-11-01 15:27 | Outpatient (CLI) | payer OTHER, SELFPAY ==
[2020-11-01 19:29] LABS: COVID19 -Nasal RAPID Negative (Negative)
== END ==
PROVIDERS: PCP Nurse Practitioner Family; Visit Provider Physician Assistant
DX: Z01.812 Encounter for preprocedural laboratory examination (principal); Z20.822 Contact with and (suspected) exposure to COVID-19
CPT/HCPCS: 87635

== ENCOUNTER → 2020-12-23 11:17 | Outpatient (CLI) | payer OTHER, SELFPAY ==
--- NOTE | 2020-12-23 | DI.US.S_ITS ---
PROCEDURE: US PERIPH VENOUS LOW EXTREM RT INDICATIONS: EDEMA. Clinical concern for deep venous thrombosis. TECHNIQUE: Real-time imaging, as well as color and pulse Doppler interrogation, were performed of the lower extremity deep veins from the inguinal ligament to the popliteal fossa. COMPARISON: None. FINDINGS: The common femoral, femoral and popliteal veins are normally compressible, and free of intraluminal thrombus. Color and pulse Doppler demonstrate normal phasic intraluminal flow. There is normal augmentation response to distal compression maneuver. Soft tissue edema can be seen involving the chen and ankle. Within the popliteal fossa, there is a partially thrombosed superficial vein. There is occlusive superficial thrombosis seen within the proximal calf. IMPRESSION: Negative for deep venous thrombosis. Superficial venous thrombosis can be seen within the popliteal fossa and the proximal calf. Dictated by: Ti Cardoso M.D. on 12/23/2020 at 11:34 Approved by: Ti Cardoso M.D. on 12/23/2020 at 11:35
== END ==
PROVIDERS: PCP Nurse Practitioner Family; Referring Provider Nurse Practitioner Family; Visit Provider Nurse Practitioner Family
DX: I82.811 Embolism and thrombosis of superficial veins of right lower extremity (principal); R60.0 Localized edema
CPT/HCPCS: 93971

== ENCOUNTER → 2021-01-21 11:53 | Outpatient (CLI) | payer OTHER, SELFPAY ==
[2021-01-21 12:19] LABS: Add Manual Diff / Slide Review NO; Basophils Absolute Auto 0 /uL (0-100); Basophils Percent Auto 0.4 % (0-2); Eosinophils Absolute Auto 0 /uL (0-450); Eosinophils Percent Auto 0.3 % (2-4); Hematocrit 24.4 % (36-46); Lymphocytes Absolute Auto 1300 /uL (1100-4500); Lymphocytes Percent Auto 30.9 % (25-40); Mean Corpuscular HGB Conc 32.8 % (30-36); Mean Corpuscular Hemoglobin 28.9 PG (26-34); Mean Corpuscular Volume 88.2 fL (80-100); Monocytes Absolute Auto 100 /uL (0-900); Monocytes Percent Auto 2.3 % (3-14); Neutrophils Absolute Auto 2800 /uL (1500-7000); Neutrophils Percent Auto 66.1 % (50-75); Platelet Count 153 X10^3/uL (150-400); Red Blood Cell Count 2.76 X10^6/uL (4.0-5.2); Red Cell Distribution Width 20.6 % (11.6-14.8); White Blood Cell Count 4.3 X10^3/uL (4.5-11.0)
[2021-01-21 12:47] LABS: Estimated Glomerular Filt Rate > 60.0 mL/min (>60)
[2021-01-21 13:01] LABS: Anisocytosis 1+; Poikilocytosis 1+; Tear Drop Cells 1+
== END ==
PROVIDERS: PCP Nurse Practitioner Family; Referring Provider Pharmacist; Visit Provider Pharmacist
DX: I82.811 Embolism and thrombosis of superficial veins of right lower extremity (principal)
CPT/HCPCS: 36415; 82565; 85025

== ENCOUNTER 2021-04-16 23:19 | Emergency (ER) | payer OTHER, SELFPAY ==
[2021-04-16 23:35] VITALS: BP 171/103; PULSE 120; RESP 20; TEMP 36.6; O2SAT 98; BMI 21.8
[2021-04-16] MEDS: SODIUM CHLORIDE 0.9% 1,000 ML 1000 ML IV (23:44)
--- NOTE | 2021-04-16 23:45 | ED.FEMALEGU ---
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 She had been receiving chemotherapy up until 6 weeks ago and has been getting biweekly immunotherapy (most recently 10 days ago) through the [facility] in [place]. She is not dizzy nor weak or lightheaded. She denies any chest pain or shortness of breath. She has had no nausea, vomiting or diarrhea. She denies any dysuria, frequency or urgency. She initially noted some dark urine and had been in touch with the triage nurses in [place] who encouraged increased hydration suggesting this was likely dehydration. Over the course of today her urine started to develop a pink tinge and she became concerned for blood in the urine. She had reached out again to the triage nursing line but had not heard back and came to us for evaluation. She is taking Xarelto given history of clot in her right leg. Related Data Home Medications Medication Instructions Recorded Confirmed acetaminophen 500 mg tablet 500 mg PO Q6H PRN 09/02/20 09/02/20 (Tylenol Extra Strength) albuterol sulfate 90 mcg/actuation See Rx Instructions .ROUTE 09/02/20 aerosol inhaler .COMPLEX PRN g Previous Rx's Medication Instructions Recorded triamcinolone acetonide 0.025 % 1 applictn TOP BID PRN #15 gram 10/17/19 topical ointment epinephrine 0.3 mg/0.3 mL 0.3 mg IM SEE INSTRUCTIONS #1 kit 03/22/20 injection, auto-injector (EpiPen 2-Darell) pravastatin 10 mg tablet 10 mg PO DAILY #90 tab 06/23/20 hydrocodone 5 mg-acetaminophen 325 1 tab PO Q4-6H PRN #20 tab 09/13/20 mg tablet ondansetron 4 mg disintegrating 4 mg PO TID-QID PRN #10 tab 09/13/20 tablet cyclobenzaprine 10 mg tablet 10 mg PO TID PRN #20 tab 09/15/20 handicap placard #2 ea 09/28/20 Allergies Allergy/AdvReac Type Severity Reaction Status Date / Time peanut Allergy Severe Anaphylaxis Verified 10/07/20 10:57 sulfamethoxazole Allergy Severe itching Verified 10/07/20 10:57 [From ] trimethoprim [From ] Allergy Severe itching Verified 10/07/20 10:57 Sulfa (Sulfonamide Allergy hives and Verified 10/07/20 10:57 Antibiotics) swelling Review of Systems Review of Systems Narrative: GENERAL: Denies chills, fatigue, malaise, fever, sweats. HEENT: Denies sinus pain, ear pain, sore throat, difficulty swallowing, dizziness. RESPIRATORY: Denies dyspnea, cough, wheezing, hemoptysis, sputum. CARDIOVASCULAR: Denies chest pain, palpitations, orthopnea, edema, GASTROINTESTINAL: Denies nausea, vomiting, abdominal pain, diarrhea, constipation, melena. : See HPI MUSCULOSKELETAL: denies weakness, joint pain, or bony pain SKIN: Denies rash, skin lesions, or other NEUROLOGIC: Denies weakness, headache, numbness, change in speech, confusion, seizures, incoordination. PSYCHIATRIC: No concerning psychosocial issues. 12 point review of systems is negative except for those stated above Patient History Medical History Allergies Asthma Cancer of right renal pelvis Eczema Family history of melanoma Fibroids History of kidney cancer (~2018) Lumbar pain Ovarian cyst Sacroiliac joint pain Strain of right hip Umbilical hernia (02/2020) UTI (urinary tract infection) Wears glasses Surgical History (Updated 09/14/20 @ 20:46 by Ellyn Sinha) Anesthesia Bladder tumor (~2019) H/O right nephrectomy (~07/24/19) History of biopsy (~2018) History of kidney surgery (~12/2019) History of third molar tooth extraction (1981) Status post delivery (03/05/89) Status post delivery (01/21/91) Family History (Updated 09/14/20 @ 20:51 by Ellyn Sinha) Father Cancer Hyperlipidemia Hypertension Mother Diabetes mellitus History of heart disease Hypertension Hyperlipidemia TIA (transient ischemic attack) Breast cancer Brother Hypertension Brother Hypertension Brother Hypertension Sister Cancer Hyperlipidemia Hypertension Sister Diabetes mellitus Hyperlipidemia Hypertension Grandfather History of heart disease Grandmother History of heart disease alcohol intake frequency: 0-2 drinks per day Substance Use Type: does not use Exam Initial Vital Signs Initial Vital Signs: Vital Signs Temperature 97.9 F 04/16/21 23:35 Pulse Rate 120 H 04/16/21 23:35 Respiratory Rate 20 04/16/21 23:35 Blood Pressure 171/103 H 04/16/21 23:35 Pulse Oximetry 98 04/16/21 23:35 Course Course Course Narrative: very late in visit patient remembers that she just started valacylovir for a small recurrent herpetic lesion on her back. Orders Ordered: ED Orders 04/16/21 23:25 Urinalysis and Microscopic Stat Urine Culture Stat 04/16/21 23:38 Complete Blood Count AUTO DIFF Stat Comprehensive Metabolic Panel Stat 04/17/21 00:08 CT abdomen pelvis wo/w con Stat 04/17/21 01:34 Creatinine & eGFR Stat 04/17/21 02:56 Creatinine Urine Random Stat Sodium Urine Random Stat Discontinued Medications Sodium Chloride (Normal Saline 0.9%) 1,000 mls @ 1,000 mls/hr IV BOLUS ONE Stop: 04/17/21 00:34 Last Infusion: 04/17/21 01:21 Dose: 0 mls/hr Documented by: Admin: 04/16/21 23:44 Dose: 1,000 mls/hr Documented by: UNRULY Sodium Chloride (Normal Saline 0.9%) 1,000 mls @ 1,000 mls/hr IV BOLUS ONE Stop: 04/17/21 02:34 Last Infusion: 04/17/21 02:59 Dose: 0 mls/hr Documented by: Admin: 04/17/21 01:36 Dose: 1,000 mls/hr Documented by: UNRULY Consultations Consultation #1: discussed findings with oncall oncology at [facility]. Not likely her immunologic causing this. Given reassuring exam, other labs, imaging, recommends proper return precautions and follow up early in the week as planned. She will send a note to Dr. Castaneda and expects he will call her Sunday Vital Signs Vital signs: Vital Signs - 8 hr 04/16/21 23:35 04/16/21 23:46 04/17/21 00:00 Temperature 97.9 F Pulse Rate 120 H 97 H 103 H Respiratory Rate 20 Blood Pressure 171/103 H Pulse Oximetry 98 97 98 04/17/21 02:25 04/17/21 02:26 04/17/21 04:26 Temperature 98.8 F Pulse Rate 91 H 89 82 Respiratory Rate 14 Blood Pressure 162/80 H 134/80 Pulse Oximetry 98 98 98 MDM - Female Genitourinary Lab Data Result diagrams: 04/16/21 23:38 04/17/21 01:34 Labs: Lab Results 04/16/21 04/16/21 04/16/21 Range/Units 23:25 23:25 23:38 WBC 6.2 (4.5-11.0) X10^3/uL RBC 3.29 L (4.0-5.2) X10^6/uL Hgb 9.6 L (12.0-16.0) g/dL Hct 29.5 L (36-46) % MCV 89.7 (80-100) fL MCH 29.2 (26-34) PG MCHC 32.5 (30-36) % RDW 16.4 H (11.6-14.8) % Plt Count 172 (150-400) X10^3/uL Neut % (Auto) 42.5 L (50-75) % Lymph % (Auto) 39.1 (25-40) % [place] % (Auto) 8.2 (3-14) % Eos % (Auto) 9.5 H (2-4) % Baso % (Auto) 0.7 (0-2) % Neut # (Auto) 2600 (4579-5135) /uL Lymph # (Auto) 2400 (4846-0577) /uL [place] # (Auto) 500 (0-900) /uL Eos # (Auto) 600 H (0-450) /uL Baso # (Auto) 0 (0-100) /uL Sodium (137-145) mmol/L Potassium (3.4-5.1) mmol/L Chloride (98-107) mmol/L Carbon Dioxide (22-32) mmol/L BUN (7-17) mg/dL Creatinine (0.52-1.04) mg/dL Estimated GFR (>60) mL/min BUN/Creatinine Ratio (6-22) Glucose (70-100) mg/dL Calcium (8.4-10.2) mg/dL Total Bilirubin (0.2-1.3) mg/dL AST (14-36) IU/L ALT (<35) IU/L Alkaline Phosphatase (38-126) U/L Total Protein (6.3-8.2) g/dL Albumin (3.5-5.0) g/dL Globulin (1.7-4.1) g/dL Albumin/Globulin Ratio (1.0-2.8) Urine Color Light pink Urine Appearance Clear Urine pH 5.5 (4.5-8.0) Ur Specific [place] <=1.005 (1.000-1.035) Urine Protein Trace H (Negative) Urine Glucose (UA) Negative (Negative) g/dL Urine Ketones Negative (NEGATIVE) Urine Occult Blood 3+ H (Negative) Urine Nitrate Negative (Negative) Urine Bilirubin Negative (NEGATIVE) Urine Urobilinogen 0.2 (0.2) E.U./dL Ur Leukocyte Esterase Trace H (NEGATIVE) Urine RBC 1-5/hpf (0-5/HPF) Urine WBC 0-1/hpf (0-5/HPF) Ur Renal Epithelial Cell 0-1/hpf (0-1/HPF) Urine Bacteria None seen (None) Ur Culture Indicated? Specimen cultured Ur Random Sodium 21 L (30-90) mmol/L Urine Creatinine 18.5 mg/dL 04/16/21 04/17/21 Range/Units 23:38 01:34 WBC (4.5-11.0) X10^3/uL RBC (4.0-5.2) X10^6/uL Hgb (12.0-16.0) g/dL Hct (36-46) % MCV (80-100) fL MCH (26-34) PG MCHC (30-36) % RDW (11.6-14.8) % Plt Count (150-400) X10^3/uL Neut % (Auto) (50-75) % Lymph % (Auto) (25-40) % [place] % (Auto) (3-14) % Eos % (Auto) (2-4) % Baso % (Auto) (0-2) % Neut # (Auto) (1829-1319) /uL Lymph # (Auto) (6416-4207) /uL [place] # (Auto) (0-900) /uL Eos # (Auto) (0-450) /uL Baso # (Auto) (0-100) /uL Sodium 140 (137-145) mmol/L Potassium 3.6 (3.4-5.1) mmol/L Chloride 103 (98-107) mmol/L Carbon Dioxide 28 (22-32) mmol/L BUN 21 H (7-17) mg/dL Creatinine 1.62 H 1.46 H (0.52-1.04) mg/dL Estimated GFR 32.8 L 36.9 L (>60) mL/min BUN/Creatinine Ratio 13.0 (6-22) Glucose 126 H (70-100) mg/dL Calcium 10.1 (8.4-10.2) mg/dL Total Bilirubin 0.5 (0.2-1.3) mg/dL AST 26 (14-36) IU/L ALT 24 (<35) IU/L Alkaline Phosphatase 51 (38-126) U/L Total Protein 7.6 (6.3-8.2) g/dL Albumin 4.2 (3.5-5.0) g/dL Globulin 3.4 (1.7-4.1) g/dL Albumin/Globulin Ratio 1.2 (1.0-2.8) Urine Color Urine Appearance Urine pH (4.5-8.0) Ur Specific [place] (1.000-1.035) Urine Protein (Negative) Urine Glucose (UA) (Negative) g/dL Urine Ketones (NEGATIVE) Urine Occult Blood (Negative) Urine Nitrate (Negative) Urine Bilirubin (NEGATIVE) Urine Urobilinogen (0.2) E.U./dL Ur Leukocyte Esterase (NEGATIVE) Urine RBC (0-5/HPF) Urine WBC (0-5/HPF) Ur Renal Epithelial Cell (0-1/HPF) Urine Bacteria (None) Ur Culture Indicated? Ur Random Sodium (30-90) mmol/L Urine Creatinine mg/dL Urine Dip Bedside Urine Glucose Negative Bedside Urine Bilirubin - Negative Bedside Urine Ketone - Negative Urine Specific [place] 1.010 Bedside Urine Occult Blood +++ Bedside Urine pH 6 Bedside Urine Protein +/- 15 Bedside Urine Urobilinogen - Negative Bedside Urine Nitrite - Negative Bedside Urine Leukocytes - Negative Esterase MDM Narrative Medical decision making narrative: Patient presents largely asymptomatic except for some off coloring of her urine for the past few days. She 1st noticed it to be slightly dark on Sunday and then reports she initiated Jenifer acyclovir for a recurrent herpetic lesion in her lower back on . She started developing a pink tinge to her urine in the aftermath. She denies urinary complaints such as dysuria, frequency or urgency. She has no fever or chills and denies any back pain. UTI and pyelonephritis thought unlikely. She does have an acute kidney injury with a significant change in her GFR. She does not appear dehydrated as she has moist mucous membranes and good skin turgor, her labs changed very little with administration of IV fluid, suggesting this is unlikely a prerenal issue. Imaging would suggest against the likelihood of an obstructive uropathy. Patient's calculated FeNa would suggest an intrinsic kidney injury, presumably from her Valacylovir. She is otherwise well and other electrolytes are within normal limits. She is encouraged to stop her antiviral, follow up as planned and given extensive return precautions which she is able to verbalize back, thus proving comprehension. Questions answered to her apparent satisfaction. Discharge Plan Departure Patient Disposition: Home Clinical Impression: Acute kidney injury Hematuria Qualifiers: Hematuria type: unspecified type Qualified Code(s): R31.9 - Hematuria, unspecified Instructions: Acute Kidney Injury, DI for Hematuria Activity Restrictions/Additional Instructions: *You have been diagnosed with [hematuria in the absence of any sign of infection and a decrease in renal function. After our extensive workup including urine, blood work and imaging would seem most likely this is related to damage to the kidney itself, possibly from the valacyclovir you just started. *What to do: *STOP TAKING THE VALACYCLOVIR, otehrwise please continue to take your regular medications as directed. * please follow-up at the [facility] on Sunday as planned, but as we discussed please call your care team on Sunday if you have not heard from them by early afternoon. *Return to Emergency Department if you should have any new, worsening or concerning symptoms, such as [fever greater than 101 F, shaking chills, worsening pain, persistent vomiting, worsening blood in the urine or other bothersome symptoms] Prescriptions: No Action triamcinolone acetonide 0.025 % ointment 1 applictn TOP BID PRN (Reason: excema) Qty: 15 RF: 5 epinephrine [EpiPen 2-Darell] 0.3 mg/0.3 mL auto-injector 0.3 mg IM SEE INSTRUCTIONS Qty: 1 RF: 1 pravastatin 10 mg tablet 10 mg PO DAILY Qty: 90 RF: 2 (DME) handicap placard See Rx Instructions .Route .MEDSUPPLY Qty: 2 RF: 0 albuterol sulfate 90 mcg/actuation HFA aerosol inhaler See Rx Instructions .ROUTE .COMPLEX PRNRF: 0 acetaminophen [Tylenol Extra Strength] 500 mg tablet 500 mg PO Q6H PRNRF: 0 hydrocodone-acetaminophen 5-325 mg tablet 1 tab PO Q4-6H PRN (Reason: pain) Qty: 20 RF: 0 ondansetron 4 mg tablet,disintegrating 4 mg PO TID-QID PRN (Reason: nausea and vomiting) Qty: 10 RF: 0 cyclobenzaprine 10 mg tablet 10 mg PO TID PRN (Reason: muscle spasm) Qty: 20 RF: 0 Referrals: Howard Marcum ARNP [Primary Care Provider] -
[2021-04-16 23:46] VITALS: PULSE 97; O2SAT 97
[2021-04-16 23:49] LABS: Appearance Urine UA CLEAR; Bilirubin Urine UA NEGATIVE (NEGATIVE); Glucose Urine UA NEGATIVE (Negative); Ketones Urine UA NEGATIVE (NEGATIVE); Leukocyte Esterase Urine UA TRACE (NEGATIVE); Nitrite Urine UA NEGATIVE (Negative); Occult Blood Urine UA 3+ (Negative); Protein Urine UA TRACE (Negative); Specific Gravity Urine UA <=1.005 (1.000-1.035); Urobilinogen Urine UA 0.2 E.U./dL (0.2)
[2021-04-16 23:52] LABS: Color Urine UA LIGHT PINK; pH Urine UA 5.5 (4.5-8.0)
[2021-04-16 23:59] LABS: Alanine Aminotransferase 24 IU/L (<35); Albumin 4.2 g/dL (3.5-5.0); Albumin Globulin Ratio 1.2 (1.0-2.8); Alkaline Phosphatase 51 U/L (38-126); Aspartate Aminotransferase 26 IU/L (14-36); Bilirubin Total 0.5 mg/dL (0.2-1.3); Blood Urea Nitrogen 21 mg/dL (7-17); Calcium 10.1 mg/dL (8.4-10.2); Carbon Dioxide 28 mmol/L (22-32); Chloride 103 mmol/L (98-107); Estimated Glomerular Filt Rate 32.8 mL/min (>60); Globulin 3.4 g/dL (1.7-4.1); Glucose 126 mg/dL (70-100); HEMOLYSIS < 15 (0-50); Potassium 3.6 mmol/L (3.4-5.1); Sodium 140 mmol/L (137-145); Total Protein 7.6 g/dL (6.3-8.2)
[2021-04-17] VITALS: PULSE 103; O2SAT 98
[2021-04-17 00:01] LABS: Add Manual Diff / Slide Review NO; Basophils Absolute Auto 0 /uL (0-100); Basophils Percent Auto 0.7 % (0-2); Eosinophils Absolute Auto 600 /uL (0-450); Eosinophils Percent Auto 9.5 % (2-4); Hematocrit 29.5 % (36-46); Hemoglobin 9.6 g/dL (12.0-16.0); Lymphocytes Absolute Auto 2400 /uL (1100-4500); Lymphocytes Percent Auto 39.1 % (25-40); Mean Corpuscular HGB Conc 32.5 % (30-36); Mean Corpuscular Hemoglobin 29.2 PG (26-34); Mean Corpuscular Volume 89.7 fL (80-100); Monocytes Absolute Auto 500 /uL (0-900); Monocytes Percent Auto 8.2 % (3-14); Neutrophils Absolute Auto 2600 /uL (1500-7000); Neutrophils Percent Auto 42.5 % (50-75); Platelet Count 172 X10^3/uL (150-400); Red Blood Cell Count 3.29 X10^6/uL (4.0-5.2); Red Cell Distribution Width 16.4 % (11.6-14.8); White Blood Cell Count 6.2 X10^3/uL (4.5-11.0)
--- NOTE | 2021-04-17 00:08 | DI.CT.S_ITS ---
PROCEDURE: CT ABDOMEN PELVIS WO/W CON INDICATIONS: painless hematuria, hx cancer, on Xarelto TECHNIQUE: Optional 5 mm thick noncontrast images acquired from the diaphragm to the symphysis pubis. After the administration of intravenous contrast, 5 mm thick images acquired from the diaphragm to the symphysis pubis after a 10-minute delay. 2 mm thick coronal and sagittal reformats were then performed of the kidneys and ureters. For radiation dose reduction, the following was used: automated exposure control, adjustment of mA and/or kV according to patient size. COMPARISON: [facility], CT, CT CHEST ABD PEL W CON, 09/22/2020, 10:42. [facility], MR, MR LUMBAR SPINE WO/W CON, 09/13/2020, 11:09. [facility], NM, NM BONE SCAN WHOLE BODY, 09/28/2020, 16:02. FINDINGS: Image quality: Excellent. Lung bases: There are multiple lung nodules at lung bases bilaterally, consistent with pulmonary metastases. Compared to the last CT on 09/22/2021 and, lung nodules are decreased in size. For example, a operations representative nodule in the left lower lobe measures 1.4 cm; previously 2.1 cm. Heart size is normal. Small hiatal hernia. Urinary system: Right kidney is surgically absent. Left kidney is normal in size. There is subtle striated nephrogram in left kidney. No discrete left renal mass. No renal stone or hydronephrosis. Mild left renal pelviectasis. Renal calyces appear normal in morphology when filled with contrast. Opacified portions of both ureters demonstrate normal caliber. Bladder wall thickness is normal. No calcified bladder stones. Other solid organs: Liver is normal in size and enhancement. Gallbladder is normal. Biliary system is non dilated. Pancreas enhances normally. Spleen is normal in size and enhancement. No adrenal nodules. Peritoneum and bowel: Bowel loops demonstrate normal wall thickness and caliber. No free fluid or air. Nodes and vessels: There is retroperitoneal adenopathy consistent with bhanu metastasis. Compared to the last exam, retroperitoneal lymph nodes has decreased in size. For example, there are a couple of left para-aortic lymph node measuring 1.0 cm and 0.8 cm, previously 1.4 x 1.7 cm and 1.1 x 1.5 cm. Bilateral iliac lymphadenopathy is also decreased. Aorta and inferior vena cava are normal in size. Abdominal wall: No ventral hernias. Pelvis: Myomatous uterus. There is a 1.6 cm cyst in the right adnexa. No pathologic free pelvic fluid. No inguinal hernias or adenopathy. Bones: Mixed lytic and blastic bone lesions in L3 and L4 with pathological compression fractures, new since the last exam. There is also new mild compression fracture of L1 involving the superior endplate. No vertebral body compression fractures. IMPRESSION: 1. Subtle striated nephrogram of the left kidney. There is trace left renal pelviectasis. Recommend clinical correlation for an infectious process such as pyelonephritis. No findings to suggest left renal mass. No renal stones. 2. Multiple pulmonary nodules at lung bases bilaterally compatible with pulmonary metastases. Compared with the last CT dated 09/22/2020, pulmonary nodules are decreased in size. 3. Decreased retroperitoneal and iliac lymphadenopathy. 4. Mixed lytic and blastic bone lesions in L3 and L4 compatible with osseous metastasis. There are new compression fracture of L3 and L4, as well as L1, compatible with pathological fractures. The result was discussed with Dr. Bell. Dictated by: Silvia Ching M.D. on 04/17/2021 at 0:53 Approved by: Silvia Ching M.D. on 04/17/2021 at 1:15
[2021-04-17 00:13] LABS: WBC Urine 0-1/HPF (0-5/HPF)
[2021-04-17 00:14] LABS: Renal Epithelial Cells Urine 0-1/HPF (0-1/HPF)
[2021-04-17 00:16] LABS: RBC Urine 1-5/HPF (0-5/HPF)
[2021-04-17 00:17] LABS: Bacteria Urine None Seen; Culture Indicated Urine Specimen Cultured
[2021-04-17] MEDS: SODIUM CHLORIDE 0.9% 1,000 ML 1000 ML IV (01:36)
[2021-04-17 01:47] LABS: Estimated Glomerular Filt Rate 36.9 mL/min (>60)
[2021-04-17 02:25] VITALS: PULSE 91; O2SAT 98
[2021-04-17 02:26] VITALS: BP 162/80; PULSE 89; O2SAT 98
[2021-04-17 03:24] LABS: Creatinine Urine Random 18.5 mg/dL; Sodium Urine Random 21 mmol/L (30-90)
[2021-04-17 04:26] VITALS: BP 134/80; PULSE 82; RESP 14; TEMP 37.1; O2SAT 98
== END 2021-04-17 04:28 | disposition home or self-care (01) ==
PROVIDERS: Emergency Provider Emergency Medicine; PCP Nurse Practitioner Family
DX: N17.9 Acute kidney failure, unspecified (principal); R31.9 Hematuria, unspecified
CPT/HCPCS: 36415; 74178; 80053; 81001; 81003; 82565; 82570; 84300; 85025; 87086; 96360; 96361; 99284; Q9967

== ENCOUNTER → 2021-07-20 16:03 | Outpatient (CLI) | payer OTHER, SELFPAY ==
[2021-07-20 16:47] LABS: Add Manual Diff / Slide Review NO; Basophils Absolute Auto 0 /uL (0-100); Basophils Percent Auto 0.7 % (0-2); Eosinophils Absolute Auto 100 /uL (0-450); Eosinophils Percent Auto 3.1 % (2-4); Hematocrit 31.6 % (36-46); Hemoglobin 10.5 g/dL (12.0-16.0); Lymphocytes Absolute Auto 2500 /uL (1100-4500); Mean Corpuscular HGB Conc 33.2 % (30-36); Mean Corpuscular Hemoglobin 29.3 PG (26-34); Mean Corpuscular Volume 88.1 fL (80-100); Monocytes Absolute Auto 300 /uL (0-900); Monocytes Percent Auto 7.1 % (3-14); Neutrophils Absolute Auto 1700 /uL (1500-7000); Neutrophils Percent Auto 36.1 % (50-75); Platelet Count 168 X10^3/uL (150-400); Red Blood Cell Count 3.59 X10^6/uL (4.0-5.2); Red Cell Distribution Width 15.6 % (11.6-14.8); White Blood Cell Count 4.7 X10^3/uL (4.5-11.0)
[2021-07-20 17:02] LABS: Appearance Urine UA CLEAR; Bilirubin Urine UA NEGATIVE (NEGATIVE); Color Urine UA YELLOW; Glucose Urine UA NEGATIVE (Negative); Ketones Urine UA NEGATIVE (NEGATIVE); Leukocyte Esterase Urine UA NEGATIVE (NEGATIVE); Nitrite Urine UA NEGATIVE (Negative); Occult Blood Urine UA 3+ (Negative); Protein Urine UA 1+ (Negative); Urobilinogen Urine UA 0.2 E.U./dL (0.2)
[2021-07-20 17:06] LABS: pH Urine UA 6.5 (4.5-8.0)
[2021-07-20 17:18] LABS: Bacteria Urine Occasional (0-1); Culture Indicated Urine Specimen Cultured; RBC Urine >100/HPF (0-5/HPF); Renal Epithelial Cells Urine 0-1/HPF (0-1/HPF); Squamous Epithelial Cell Urine 0-1 /HPF (0-5/HPF); Transitional Epi Cells Urine 1-5/HPF (0-5/HPF); WBC Urine 5-10/HPF (0-5/HPF)
[2021-07-20 17:48] LABS: Alanine Aminotransferase 37 IU/L (<35); Albumin 4.1 g/dL (3.5-5.0); Albumin Globulin Ratio 1.5 (1.0-2.8); Alkaline Phosphatase 68 U/L (38-126); Aspartate Aminotransferase 36 IU/L (14-36); Bilirubin Total 0.9 mg/dL (0.2-1.3); Blood Urea Nitrogen 13 mg/dL (7-17); Calcium 9.8 mg/dL (8.4-10.2); Carbon Dioxide 27 mmol/L (22-32); Chloride 102 mmol/L (98-107); Estimated Glomerular Filt Rate 57.1 mL/min (>60); Globulin 2.8 g/dL (1.7-4.1); Glucose 100 mg/dL (70-100); HEMOLYSIS < 15 (0-50); Phosphorous 6.3 mg/dL (2.5-4.5); Sodium 139 mmol/L (137-145); Total Protein 6.9 g/dL (6.3-8.2)
== END ==
PROVIDERS: PCP Nurse Practitioner Family; Referring Provider Nurse Practitioner Family; Visit Provider Nurse Practitioner Family
DX: C67.9 Malignant neoplasm of bladder, unspecified (principal); C79.10 Secondary malignant neoplasm of unspecified urinary organs
CPT/HCPCS: 36415; 80053; 81001; 84100; 85025; 87086

== ENCOUNTER → 2021-07-28 14:02 | Outpatient (CLI) | payer OTHER, SELFPAY ==
[2021-07-28 17:55] LABS: Phosphorous 6.8 mg/dL (2.5-4.5)
== END ==
PROVIDERS: PCP Nurse Practitioner Family; Referring Provider Nurse Practitioner Family; Visit Provider Nurse Practitioner Family
DX: C79.10 Secondary malignant neoplasm of unspecified urinary organs (principal)
CPT/HCPCS: 36415; 84100

== ENCOUNTER → 2021-08-03 13:49 | Outpatient (CLI) | payer OTHER, SELFPAY ==
[2021-08-03 14:03] LABS: Add Manual Diff / Slide Review NO; Basophils Absolute Auto 0 /uL (0-100); Basophils Percent Auto 1.1 % (0-2); Eosinophils Absolute Auto 100 /uL (0-450); Eosinophils Percent Auto 3.3 % (2-4); Hematocrit 30.8 % (36-46); Hemoglobin 10.3 g/dL (12.0-16.0); Lymphocytes Absolute Auto 1900 /uL (1100-4500); Lymphocytes Percent Auto 43.4 % (25-40); Mean Corpuscular HGB Conc 33.4 % (30-36); Mean Corpuscular Hemoglobin 29.2 PG (26-34); Mean Corpuscular Volume 87.4 fL (80-100); Monocytes Absolute Auto 300 /uL (0-900); Neutrophils Absolute Auto 1900 /uL (1500-7000); Neutrophils Percent Auto 44.2 % (50-75); Platelet Count 150 X10^3/uL (150-400); Red Blood Cell Count 3.53 X10^6/uL (4.0-5.2); Red Cell Distribution Width 15.3 % (11.6-14.8); White Blood Cell Count 4.3 X10^3/uL (4.5-11.0)
[2021-08-03 14:14] LABS: Alanine Aminotransferase 36 IU/L (<35); Albumin 4.2 g/dL (3.5-5.0); Albumin Globulin Ratio 1.4 (1.0-2.8); Alkaline Phosphatase 57 U/L (38-126); Aspartate Aminotransferase 37 IU/L (14-36); BUN Creatinine Ratio 12.9 (6-22); Bilirubin Total 0.7 mg/dL (0.2-1.3); Blood Urea Nitrogen 11 mg/dL (7-17); Calcium 10.2 mg/dL (8.4-10.2); Carbon Dioxide 31 mmol/L (22-32); Chloride 105 mmol/L (98-107); Estimated Glomerular Filt Rate > 60.0 mL/min (>60); Glucose 107 mg/dL (70-100); HEMOLYSIS < 15 (0-50); Phosphorous 5.4 mg/dL (2.5-4.5); Potassium 3.8 mmol/L (3.4-5.1); Sodium 140 mmol/L (137-145); Total Protein 7.2 g/dL (6.3-8.2)
== END ==
PROVIDERS: PCP Nurse Practitioner Family; Referring Provider Nurse Practitioner Family; Visit Provider Nurse Practitioner Family
DX: C79.10 Secondary malignant neoplasm of unspecified urinary organs (principal)
CPT/HCPCS: 36415; 80053; 84100; 85025

== ENCOUNTER → 2021-09-02 14:50 | Outpatient (CLI) | payer OTHER, SELFPAY ==
[2021-09-02 15:06] LABS: Add Manual Diff / Slide Review NO; Basophils Absolute Auto 0 /uL (0-100); Basophils Percent Auto 0.9 % (0-2); Eosinophils Absolute Auto 200 /uL (0-450); Eosinophils Percent Auto 3.5 % (2-4); Hematocrit 30.2 % (36-46); Hemoglobin 10.1 g/dL (12.0-16.0); Lymphocytes Absolute Auto 2300 /uL (1100-4500); Mean Corpuscular HGB Conc 33.4 % (30-36); Mean Corpuscular Hemoglobin 29.4 PG (26-34); Mean Corpuscular Volume 88.3 fL (80-100); Monocytes Absolute Auto 300 /uL (0-900); Monocytes Percent Auto 7.6 % (3-14); Neutrophils Absolute Auto 1700 /uL (1500-7000); Platelet Count 162 X10^3/uL (150-400); Red Blood Cell Count 3.42 X10^6/uL (4.0-5.2); Red Cell Distribution Width 15.8 % (11.6-14.8); White Blood Cell Count 4.6 X10^3/uL (4.5-11.0)
[2021-09-02 15:17] LABS: Alanine Aminotransferase 59 IU/L (<35); Albumin 4.2 g/dL (3.5-5.0); Albumin Globulin Ratio 1.3 (1.0-2.8); Alkaline Phosphatase 80 U/L (38-126); Aspartate Aminotransferase 50 IU/L (14-36); BUN Creatinine Ratio 13.3 (6-22); Bilirubin Total 0.5 mg/dL (0.2-1.3); Blood Urea Nitrogen 12 mg/dL (7-17); Calcium 9.2 mg/dL (8.4-10.2); Carbon Dioxide 28 mmol/L (22-32); Chloride 105 mmol/L (98-107); Estimated Glomerular Filt Rate > 60.0 mL/min (>60); Globulin 3.3 g/dL (1.7-4.1); Glucose 102 mg/dL (70-100); HEMOLYSIS < 15 (0-50); Potassium 3.8 mmol/L (3.4-5.1); Sodium 139 mmol/L (137-145); Total Protein 7.5 g/dL (6.3-8.2)
== END ==
PROVIDERS: PCP Nurse Practitioner Family; Referring Provider Nurse Practitioner Family; Visit Provider Nurse Practitioner Family
DX: C67.9 Malignant neoplasm of bladder, unspecified (principal); C79.10 Secondary malignant neoplasm of unspecified urinary organs
CPT/HCPCS: 36415; 80053; 84100; 85025

== ENCOUNTER → 2021-10-14 11:25 | Outpatient (CLI) | payer OTHER, SELFPAY ==
[2021-10-14 11:42] LABS: Add Manual Diff / Slide Review NO; Basophils Absolute Auto 0 /uL (0-100); Eosinophils Absolute Auto 200 /uL (0-450); Eosinophils Percent Auto 4.6 % (2-4); Hemoglobin 10.5 g/dL (12.0-16.0); Lymphocytes Absolute Auto 2400 /uL (1100-4500); Lymphocytes Percent Auto 49.9 % (25-40); Mean Corpuscular HGB Conc 33.7 % (30-36); Mean Corpuscular Hemoglobin 29.8 PG (26-34); Mean Corpuscular Volume 88.4 fL (80-100); Monocytes Absolute Auto 400 /uL (0-900); Monocytes Percent Auto 7.8 % (3-14); Neutrophils Absolute Auto 1700 /uL (1500-7000); Neutrophils Percent Auto 36.7 % (50-75); Platelet Count 186 X10^3/uL (150-400); Red Blood Cell Count 3.51 X10^6/uL (4.0-5.2); Red Cell Distribution Width 15.9 % (11.6-14.8); White Blood Cell Count 4.8 X10^3/uL (4.5-11.0)
[2021-10-14 11:52] LABS: Alanine Aminotransferase 59 IU/L (<35); Albumin Globulin Ratio 1.1 (1.0-2.8); Alkaline Phosphatase 69 U/L (38-126); Aspartate Aminotransferase 52 IU/L (14-36); BUN Creatinine Ratio 14.6 (6-22); Bilirubin Total 0.7 mg/dL (0.2-1.3); Blood Urea Nitrogen 12 mg/dL (7-17); Calcium 9.1 mg/dL (8.4-10.2); Carbon Dioxide 28 mmol/L (22-32); Chloride 108 mmol/L (98-107); Estimated Glomerular Filt Rate > 60.0 mL/min (>60); Globulin 3.5 g/dL (1.7-4.1); Glucose 103 mg/dL (70-100); HEMOLYSIS 19 (0-50); Phosphorous 2.7 mg/dL (2.5-4.5); Potassium 4.1 mmol/L (3.4-5.1); Sodium 142 mmol/L (137-145); Total Protein 7.5 g/dL (6.3-8.2)
== END ==
PROVIDERS: PCP Nurse Practitioner Family; Referring Provider Nurse Practitioner Family; Visit Provider Nurse Practitioner Family
DX: C79.10 Secondary malignant neoplasm of unspecified urinary organs (principal); C67.9 Malignant neoplasm of bladder, unspecified
CPT/HCPCS: 36415; 80053; 84100; 85025

== ENCOUNTER → 2021-11-01 11:12 | Outpatient (CLI) | payer OTHER, SELFPAY ==
[2021-11-01 12:01] LABS: Add Manual Diff / Slide Review NO; Basophils Absolute Auto 100 /uL (0-100); Basophils Percent Auto 1.2 % (0-2); Eosinophils Absolute Auto 300 /uL (0-450); Eosinophils Percent Auto 6.2 % (2-4); Hemoglobin 10.5 g/dL (12.0-16.0); Lymphocytes Absolute Auto 2200 /uL (1100-4500); Lymphocytes Percent Auto 50.9 % (25-40); Mean Corpuscular HGB Conc 33.9 % (30-36); Mean Corpuscular Hemoglobin 29.7 PG (26-34); Mean Corpuscular Volume 87.6 fL (80-100); Monocytes Absolute Auto 300 /uL (0-900); Monocytes Percent Auto 6.4 % (3-14); Neutrophils Absolute Auto 1500 /uL (1500-7000); Neutrophils Percent Auto 35.3 % (50-75); Platelet Count 114 X10^3/uL (150-400); Red Blood Cell Count 3.54 X10^6/uL (4.0-5.2); Red Cell Distribution Width 15.6 % (11.6-14.8); White Blood Cell Count 4.4 X10^3/uL (4.5-11.0)
[2021-11-01 12:09] LABS: Alanine Aminotransferase 39 IU/L (<35); Albumin Globulin Ratio 1.3 (1.0-2.8); Alkaline Phosphatase 61 U/L (38-126); Aspartate Aminotransferase 35 IU/L (14-36); BUN Creatinine Ratio 13.6 (6-22); Bilirubin Total 0.7 mg/dL (0.2-1.3); Blood Urea Nitrogen 15 mg/dL (7-17); Carbon Dioxide 29 mmol/L (22-32); Chloride 107 mmol/L (98-107); Estimated Glomerular Filt Rate 59 mL/min (>60); Globulin 3.1 g/dL (1.7-4.1); Glucose 105 mg/dL (70-100); HEMOLYSIS < 15 (0-50); Phosphorous 4.7 mg/dL (2.5-4.5); Potassium 4.1 mmol/L (3.4-5.1); Sodium 140 mmol/L (137-145); Total Protein 7.1 g/dL (6.3-8.2)
== END ==
PROVIDERS: PCP Nurse Practitioner Family; Referring Provider Nurse Practitioner Family; Visit Provider Nurse Practitioner Family
DX: C79.10 Secondary malignant neoplasm of unspecified urinary organs (principal); C67.9 Malignant neoplasm of bladder, unspecified
CPT/HCPCS: 36415; 80053; 84100; 85025

== ENCOUNTER 2022-03-05 09:52 | Emergency (ER) | payer OTHER, SELFPAY ==
[2022-03-05 10:16] VITALS: BP 128/82; PULSE 84; RESP 16; TEMP 36.4; O2SAT 98; BMI 20.5
[2022-03-05 11:24] LABS: Appearance Urine UA CLEAR; Bilirubin Urine UA NEGATIVE (NEGATIVE); Color Urine UA YELLOW; Glucose Urine UA NEGATIVE (Negative); Ketones Urine UA NEGATIVE (NEGATIVE); Leukocyte Esterase Urine UA 3+ (NEGATIVE); Nitrite Urine UA POSITIVE (Negative); Occult Blood Urine UA 3+ (Negative); Protein Urine UA 2+ (Negative); Urobilinogen Urine UA 0.2 E.U./dL (0.2)
[2022-03-05 11:35] LABS: Bacteria Urine Many (>30); Culture Indicated Urine Specimen Cultured; RBC Urine 10-30/HPF (0-5/HPF); Urine Comments WBC CLUMPS PRESENT; WBC Urine >100/HPF (0-5/HPF)
--- NOTE | 2022-03-05 14:25 | ED.FEMALEGU ---
HPI - Female Genitourinary <Fabrice Gongora PA-C - Last Filed: 03/05/22 14:43> General Chief complaint: Urogenital-Female Stated complaint: has 1 kidney poss. uti cancer care pt. Time Seen by Provider: 03/05/22 13:58 Source: patient Mode of arrival: Family Vehicle History of Present Illness HPI Narrative: Patient is a 56-year-old female who presents to the emergency room today with complaint of possible urinary tract infection. States she has urinary urgency cloudy urine and slight pain with urination. 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 Right kidney was removed in July of 2019. Has completed chemo and is not in remission at this time. Patient denies any other concerns at this time. Related Data Home Medications Medication Instructions Recorded Confirmed acetaminophen 500 mg tablet 500 mg PO Q6H PRN 09/02/20 09/02/20 (Tylenol Extra Strength) albuterol sulfate 90 mcg/actuation See Rx Instructions .Route 09/02/20 aerosol inhaler .COMPLEX PRN Previous Rx's Medication Instructions Recorded triamcinolone acetonide 0.025 % 1 applictn topical BID PRN excema 10/17/19 topical ointment #15 grams epinephrine 0.3 mg/0.3 mL 0.3 mg (0.3 mL) IM SEE 03/22/20 injection, auto-injector (EpiPen INSTRUCTIONS ##1 2-Darell) pravastatin 10 mg tablet 10 mg PO DAILY #90 tabs 06/23/20 hydrocodone 5 mg-acetaminophen 325 1 tab PO Q4-6H PRN pain #20 tabs 09/13/20 mg tablet ondansetron 4 mg disintegrating 4 mg PO TID-QID PRN nausea and 09/13/20 tablet vomiting #10 tabs cyclobenzaprine 10 mg tablet 10 mg PO TID PRN muscle spasm #20 09/15/20 tabs handicap placard #2 ea 09/28/20 nitrofurantoin macrocrystal 100 mg 100 mg PO BID #10 caps 03/05/22 capsule (Macrodantin) Allergies Allergy/AdvReac Type Severity Reaction Status Date / Time peanut Allergy Severe Anaphylaxis Verified 03/05/22 10:21 sulfamethoxazole Allergy Severe itching Verified 03/05/22 10:21 [From ] trimethoprim [From ] Allergy Severe itching Verified 03/05/22 10:21 Sulfa (Sulfonamide Allergy hives and Verified 03/05/22 10:21 Antibiotics) swelling valacyclovir AdvReac Severe kidney Verified 03/05/22 10:21 injury Review of Systems <Fabrice Gongora PA-C - Last Filed: 03/05/22 14:43> Review of Systems Narrative: R.O.S.: General: No fever, chills or fatigue. Cardiovascular: No chest pain or palpitations Respiratory: No S.O.B. HEENT: No congestion, ear pain, rhinorrhea, sore throat or tinnitus Gastrointestinal: Urinary urgency with cloudy urine Skin: No rash or associated abnormalities Musculoskeletal: No pain in muscles or joints, no limitation of range of motion, no paresthesia or numbness. ?? Neurological: Awake, alert and in not apparent distress. No Headaches, changes in vision or other related neurological concerns. Patient History <Fabrice Gongora PA-C - Last Filed: 03/05/22 14:43> Medical History (Updated 03/05/22 @ 14:31 by Fabrice Gongora PA-C) Allergies Asthma Cancer of right renal pelvis Eczema Family history of melanoma Fibroids History of kidney cancer (~2018) Lumbar pain Metastatic urothelial carcinoma (11/2019) Osseous metastasis Ovarian cyst Pain of metastatic malignancy Sacroiliac joint pain Strain of right hip Umbilical hernia (02/2020) UTI (urinary tract infection) Wears glasses Surgical History (Updated 09/14/20 @ 20:46 by Ellyn Sinha) Anesthesia Bladder tumor (~2019) H/O right nephrectomy (~07/24/19) History of biopsy (~2018) History of kidney surgery (~12/2019) History of third molar tooth extraction (1981) Status post delivery (03/05/89) Status post delivery (01/21/91) Family History (Updated 09/14/20 @ 20:51 by Ellyn Sinha) Father Cancer Hyperlipidemia Hypertension Mother Diabetes mellitus History of heart disease Hypertension Hyperlipidemia TIA (transient ischemic attack) Breast cancer Brother Hypertension Brother Hypertension Brother Hypertension Sister Cancer Hyperlipidemia Hypertension Sister Diabetes mellitus Hyperlipidemia Hypertension Grandfather History of heart disease Grandmother History of heart disease alcohol intake frequency: 0-2 drinks per day Substance Use Type: does not use Exam <Fabrice Gongora PA-C - Last Filed: 03/05/22 14:43> Narrative Exam Narrative: Physical Exam: ? General: normal appearance, well developed, well nourished, alert, and awake. Not in acute distress. ? Head: Normocephalic, no lesions. Chest: Lungs CTAB, no rales, rhonchi or wheezes. ?? Heart: RRR, no murmurs, rubs or gallops. Eyes: PERRLA, EOM's full, conjunctivae clear. ? Neuro: Physiological, no localizing findings, CN3-12 intact. ?? Extremities: Warm, well perfused, FROM, no deformities, no edema. ?? Skin: Normal, no rashes, no lesions noted. ?? PSYCHIATRIC: The mood is good, no blunted affect. Speech is clear. Thought process is linear, thought content is appropriate. The voice is without significant inflection. Gastrointestinal: Soft; slight tenderness with palpation to the left lower quadrant; ND; Pos BS with Neg. rebound tenderness. No scars or major deformities noted on Visual Inspection. Initial Vital Signs Initial Vital Signs: Vital Signs Temperature 97.5 F L 03/05/22 10:16 Pulse Rate 84 03/05/22 10:16 Respiratory Rate 16 03/05/22 10:16 Blood Pressure 128/82 03/05/22 10:16 Pulse Oximetry 98 03/05/22 10:16 Oxygen Delivery Method 03/05/22 10:16 <More Cain DO - Last Filed: 03/11/22 08:10> Initial Vital Signs Initial Vital Signs: Vital Signs Temperature 97.5 F L 03/05/22 10:16 Pulse Rate 84 03/05/22 10:16 Respiratory Rate 16 03/05/22 10:16 Blood Pressure 128/82 03/05/22 10:16 Pulse Oximetry 98 03/05/22 10:16 Oxygen Delivery Method 03/05/22 10:16 Course <Fabrice Gongora PA-C - Last Filed: 03/05/22 14:43> Orders Ordered: ED Orders 03/05/22 10:36 Urinalysis and Microscopic Stat Urine Culture Stat Vital Signs Vital signs: Vital Signs - 8 hr 03/05/22 10:16 Temperature 97.5 F L Pulse Rate 84 Respiratory Rate 16 Blood Pressure 128/82 Pulse Oximetry 98 Oxygen Delivery Method Room Air <More Cain DO - Last Filed: 03/11/22 08:10> Orders Ordered: ED Orders 03/05/22 10:36 Urinalysis and Microscopic Stat Urine Culture Stat Vital Signs Vital signs: Vital Signs - 8 hr 03/05/22 10:16 Temperature 97.5 F L Pulse Rate 84 Respiratory Rate 16 Blood Pressure 128/82 Pulse Oximetry 98 Oxygen Delivery Method Room Air MDM - Female Genitourinary <Fabrice Gongora PA-C - Last Filed: 03/05/22 14:43> Lab Data Labs: Lab Results 03/05/22 Range/Units 10:36 Urine Color Yellow Urine Appearance Clear Urine pH 7.0 (4.5-8.0) Ur Specific [place] 1.010 (1.000-1.035) Urine Protein 2+ H (Negative) Urine Glucose (UA) Negative (Negative) g/dL Urine Ketones Negative (NEGATIVE) Urine Occult Blood 3+ H (Negative) Urine Nitrate Positive H (Negative) Urine Bilirubin Negative (NEGATIVE) Urine Urobilinogen 0.2 (0.2) E.U./dL Ur Leukocyte Esterase 3+ H (NEGATIVE) Urine RBC 10-30/hpf H (0-5/HPF) Urine WBC >100/hpf H (0-5/HPF) Urine Bacteria Many (>30) H (None) Ur Culture Indicated? Specimen cultured Micro UA Comment Wbc clumps present MDM Narrative Medical decision making narrative: Patient is 48-year-old female presents to the emergency room today with complaint of cloudy urine urinary urgency slight pain with urination. Administer history urinary tract infections have been treated with routine antibiotics. Urine reveals positive nitrite and leukocytes in urine. Antibiotics ordered patient discharged and advised to continue antibiotics as ordered and follow up with the emergency room any emergent concerns and with her primary care provider with any non-emergent concerns. Patient agrees to plan <More Cain DO - Last Filed: 03/11/22 08:10> Lab Data Labs: Lab Results 03/05/22 Range/Units 10:36 Urine Color Yellow Urine Appearance Clear Urine pH 7.0 (4.5-8.0) Ur Specific [place] 1.010 (1.000-1.035) Urine Protein 2+ H (Negative) Urine Glucose (UA) Negative (Negative) g/dL Urine Ketones Negative (NEGATIVE) Urine Occult Blood 3+ H (Negative) Urine Nitrate Positive H (Negative) Urine Bilirubin Negative (NEGATIVE) Urine Urobilinogen 0.2 (0.2) E.U./dL Ur Leukocyte Esterase 3+ H (NEGATIVE) Urine RBC 10-30/hpf H (0-5/HPF) Urine WBC >100/hpf H (0-5/HPF) Urine Bacteria Many (>30) H (None) Ur Culture Indicated? Specimen cultured Micro UA Comment Wbc clumps present Discharge Plan Departure Patient Disposition: Home Clinical Impression: Urinary tract infection Instructions: DI for Urinary Tract Infection (UTI) Activity Restrictions/Additional Instructions: *You have been diagnosed with urinary tract infection. As we discussed you have a urinary tract infection in the past will be ordering antibiotics this disorder. Please take the medications as ordered and return to the emergency room for any emergent concerns arise. I also suggest she follow-up with your primary care provider with any nonemergent concerns. [ ] *What to do: *Please continue to take your regular medications as directed. [ ] New medication prescriptions sent to your pharmacy: [ ] [x] New medication written as a paper prescription [ ] No new medications given *Please follow up with your primary care provider in 2-3 days, call for an appointment. Let them know you were seen in the Emergency Department and that we ask that you be seen in follow up. We will electronically transmit a record of today's note if your PCP is in our system *If you do not have a primary care provider please contact the [facility] Resource line at [phone]. They will ask some questions about your medical history and help get you set up with a doctor in the community. *Return to Emergency Department if you should have any new, worsening or concerning symptoms, such as [fever greater than 101 F, shaking chills, worsening pain, persistent vomiting or other bothersome symptoms] Prescriptions: New nitrofurantoin macrocrystal [Macrodantin] 100 mg capsule 100 mg PO BID Qty: 10 0RF Rx Instructions: must administer with a meal/food No Action triamcinolone acetonide 0.025 % ointment 1 applictn TOP BID PRN (Reason: excema) Qty: 15 5RF epinephrine [EpiPen 2-Darell] 0.3 mg/0.3 mL auto-injector 0.3 mg IM SEE INSTRUCTIONS Qty: 1 1RF pravastatin 10 mg tablet 10 mg PO DAILY Qty: 90 2RF (DME) handicap placard See Rx Instructions .Route .MEDSUPPLY Qty: 2 0RF Rx Instructions: Patient satisfies requirement for handicap placard x 2 albuterol sulfate 90 mcg/actuation HFA aerosol inhaler See Rx Instructions .ROUTE .COMPLEX PRN Dose Instruction: INHALE 2 PUFFS BY MOUTH FOUR TIMES DAILY Rx Instructions: INHALE 2 PUFFS BY MOUTH FOUR TIMES DAILY PRN; acetaminophen [Tylenol Extra Strength] 500 mg tablet 500 mg PO Q6H PRN hydrocodone-acetaminophen 5-325 mg tablet 1 tab PO Q4-6H PRN (Reason: pain) Qty: 20 0RF ondansetron 4 mg tablet,disintegrating 4 mg PO TID-QID PRN (Reason: nausea and vomiting) Qty: 10 0RF cyclobenzaprine 10 mg tablet 10 mg PO TID PRN (Reason: muscle spasm) Qty: 20 0RF Referrals: Florence Lopez DO [Primary Care Provider] - Visit Report Forms: Patient Portal/API <More Cain DO - Last Filed: 03/11/22 08:10> Cosign ED Attending Mayelaature Attestation: I was immediately available in the department for consultation. Documentation has been reviewed.
[2022-03-05 14:52] VITALS: BP 124/68; PULSE 80; RESP 16; O2SAT 97
== END 2022-03-05 14:53 | disposition home or self-care (01) ==
PROVIDERS: Emergency Medicine; Emergency Provider Physician Assistant; PCP Family Medicine
DX: N39.0 Urinary tract infection, site not specified (principal)
CPT/HCPCS: 81001; 87077; 87086; 87186; 99281; 99282

== ENCOUNTER → 2022-03-29 16:08 | Outpatient (CLI) | payer OTHER, SELFPAY ==
[2022-03-29 18:04] LABS: Add Manual Diff / Slide Review NO; Alanine Aminotransferase 49 IU/L (<35); Albumin 3.9 g/dL (3.5-5.0); Albumin Globulin Ratio 1.2 (1.0-2.8); Alkaline Phosphatase 73 U/L (38-126); Aspartate Aminotransferase 48 IU/L (14-36); BUN Creatinine Ratio 15.2 (6-22); Basophils Absolute Auto 100 /uL (0-100); Basophils Percent Auto 1.2 % (0-2); Bilirubin Total 0.9 mg/dL (0.2-1.3); Blood Urea Nitrogen 14 mg/dL (7-17); Calcium 9.3 mg/dL (8.4-10.2); Carbon Dioxide 27 mmol/L (22-32); Chloride 104 mmol/L (98-107); Eosinophils Absolute Auto 200 /uL (0-450); Eosinophils Percent Auto 4.3 % (2-4); Estimated Glomerular Filt Rate > 60 mL/min (>60); Globulin 3.3 g/dL (1.7-4.1); Glucose 94 mg/dL (70-100); HEMOLYSIS < 15 (0-50); Hematocrit 31.5 % (36-46); Hemoglobin 10.6 g/dL (12.0-16.0); Lymphocytes Absolute Auto 2500 /uL (1100-4500); Lymphocytes Percent Auto 55.3 % (25-40); Mean Corpuscular HGB Conc 33.6 % (30-36); Mean Corpuscular Hemoglobin 29.8 PG (26-34); Mean Corpuscular Volume 88.5 fL (80-100); Monocytes Absolute Auto 300 /uL (0-900); Monocytes Percent Auto 6.5 % (3-14); Neutrophils Absolute Auto 1500 /uL (1500-7000); Neutrophils Percent Auto 32.7 % (50-75); Phosphorous 4.8 mg/dL (2.5-4.5); Platelet Count 149 X10^3/uL (150-400); Potassium 3.7 mmol/L (3.4-5.1); Red Blood Cell Count 3.56 X10^6/uL (4.0-5.2); Red Cell Distribution Width 14.8 % (11.6-14.8); Sodium 140 mmol/L (137-145); Total Protein 7.2 g/dL (6.3-8.2); White Blood Cell Count 4.5 X10^3/uL (4.5-11.0)
== END ==
PROVIDERS: PCP Family Medicine; Referring Provider Nurse Practitioner Family; Visit Provider Nurse Practitioner Family
DX: C67.9 Malignant neoplasm of bladder, unspecified (principal); C79.10 Secondary malignant neoplasm of unspecified urinary organs
CPT/HCPCS: 36415; 80053; 84100; 85025

== ENCOUNTER → 2022-06-06 12:39 | Outpatient (CLI) | payer OTHER, SELFPAY ==
[2022-06-06 12:54] LABS: Add Manual Diff / Slide Review NO; Basophils Absolute Auto 100 /uL (0-100); Basophils Percent Auto 0.9 % (0-2); Eosinophils Absolute Auto 200 /uL (0-450); Eosinophils Percent Auto 3.8 % (2-4); Hematocrit 35.2 % (36-46); Hemoglobin 11.6 g/dL (12.0-16.0); Lymphocytes Absolute Auto 2600 /uL (1100-4500); Lymphocytes Percent Auto 44.3 % (25-40); Mean Corpuscular HGB Conc 32.8 % (30-36); Mean Corpuscular Hemoglobin 29.3 PG (26-34); Mean Corpuscular Volume 89.3 fL (80-100); Monocytes Absolute Auto 300 /uL (0-900); Monocytes Percent Auto 5.7 % (3-14); Neutrophils Absolute Auto 2600 /uL (1500-7000); Neutrophils Percent Auto 45.3 % (50-75); Platelet Count 197 X10^3/uL (150-400); Red Blood Cell Count 3.95 X10^6/uL (4.0-5.2); Red Cell Distribution Width 14.9 % (11.6-14.8); White Blood Cell Count 5.8 X10^3/uL (4.5-11.0)
[2022-06-06 14:10] LABS: Alanine Aminotransferase 36 IU/L (<35); Albumin Globulin Ratio 1.2 (1.0-2.8); Alkaline Phosphatase 68 U/L (38-126); Aspartate Aminotransferase 35 IU/L (14-36); BUN Creatinine Ratio 23.7 (6-22); Bilirubin Total 0.5 mg/dL (0.2-1.3); Blood Urea Nitrogen 18 mg/dL (7-17); Calcium 9.3 mg/dL (8.4-10.2); Carbon Dioxide 28 mmol/L (22-32); Chloride 104 mmol/L (98-107); Estimated Glomerular Filt Rate > 60 mL/min (>60); Globulin 3.4 g/dL (1.7-4.1); Glucose 127 mg/dL (70-100); HEMOLYSIS 16 (0-50); Phosphorous 2.6 mg/dL (2.5-4.5); Potassium 3.8 mmol/L (3.4-5.1); Sodium 141 mmol/L (137-145); Total Protein 7.4 g/dL (6.3-8.2)
== END ==
PROVIDERS: PCP Family Medicine; Referring Provider Nurse Practitioner Family; Visit Provider Nurse Practitioner Family
DX: C79.10 Secondary malignant neoplasm of unspecified urinary organs (principal); C67.9 Malignant neoplasm of bladder, unspecified
CPT/HCPCS: 36415; 80053; 84100; 85025

== ENCOUNTER → 2022-07-18 11:37 | Outpatient (CLI) | payer OTHER, SELFPAY ==
[2022-07-18 13:06] LABS: Alanine Aminotransferase 33 IU/L (<35); Albumin Globulin Ratio 1.3 (1.0-2.8); Alkaline Phosphatase 67 U/L (38-126); Aspartate Aminotransferase 38 IU/L (14-36); BUN Creatinine Ratio 17.8 (6-22); Bilirubin Total 0.7 mg/dL (0.2-1.3); Blood Urea Nitrogen 16 mg/dL (7-17); Calcium 9.6 mg/dL (8.4-10.2); Carbon Dioxide 28 mmol/L (22-32); Chloride 105 mmol/L (98-107); Estimated Glomerular Filt Rate > 60 mL/min (>60); Globulin 3.1 g/dL (1.7-4.1); Glucose 89 mg/dL (70-100); HEMOLYSIS < 15 (0-50); Phosphorous 4.5 mg/dL (2.5-4.5); Potassium 4.6 mmol/L (3.4-5.1); Sodium 141 mmol/L (137-145); Total Protein 7.1 g/dL (6.3-8.2)
== END ==
PROVIDERS: PCP Family Medicine; Referring Provider Nurse Practitioner Family; Visit Provider Nurse Practitioner Family
DX: C79.10 Secondary malignant neoplasm of unspecified urinary organs (principal)
CPT/HCPCS: 36415; 80053; 84100

== ENCOUNTER → 2022-08-21 14:34 | Outpatient (CLI) | payer OTHER, SELFPAY ==
[2022-08-21 14:58] LABS: Add Manual Diff / Slide Review NO; Basophils Absolute Auto 100 /uL (0-100); Basophils Percent Auto 0.9 % (0-2); Eosinophils Absolute Auto 200 /uL (0-450); Eosinophils Percent Auto 2.9 % (2-4); Hematocrit 33.8 % (36-46); Hemoglobin 11.3 g/dL (12.0-16.0); Lymphocytes Absolute Auto 2100 /uL (1100-4500); Lymphocytes Percent Auto 38.9 % (25-40); Mean Corpuscular HGB Conc 33.4 % (30-36); Mean Corpuscular Hemoglobin 29.5 PG (26-34); Mean Corpuscular Volume 88.2 fL (80-100); Monocytes Absolute Auto 400 /uL (0-900); Monocytes Percent Auto 6.7 % (3-14); Neutrophils Absolute Auto 2800 /uL (1500-7000); Neutrophils Percent Auto 50.6 % (50-75); Platelet Count 156 X10^3/uL (150-400); Red Blood Cell Count 3.83 X10^6/uL (4.0-5.2); Red Cell Distribution Width 14.9 % (11.6-14.8); White Blood Cell Count 5.5 X10^3/uL (4.5-11.0)
[2022-08-21 15:18] LABS: Alanine Aminotransferase 62 IU/L (<35); Albumin 4.1 g/dL (3.5-5.0); Albumin Globulin Ratio 1.3 (1.0-2.8); Alkaline Phosphatase 89 U/L (38-126); Aspartate Aminotransferase 46 IU/L (14-36); BUN Creatinine Ratio 13.9 (6-22); Bilirubin Total 0.8 mg/dL (0.2-1.3); Blood Urea Nitrogen 11 mg/dL (7-17); Calcium 9.2 mg/dL (8.4-10.2); Carbon Dioxide 27 mmol/L (22-32); Chloride 102 mmol/L (98-107); Estimated Glomerular Filt Rate > 60 mL/min (>60); Globulin 3.1 g/dL (1.7-4.1); Glucose 102 mg/dL (70-100); HEMOLYSIS < 15 (0-50); Phosphorous 3.7 mg/dL (2.5-4.5); Potassium 3.9 mmol/L (3.4-5.1); Sodium 138 mmol/L (137-145); Total Protein 7.2 g/dL (6.3-8.2)
== END ==
PROVIDERS: PCP Family Medicine; Referring Provider Nurse Practitioner Family; Visit Provider Nurse Practitioner Family
DX: C79.10 Secondary malignant neoplasm of unspecified urinary organs (principal); C67.9 Malignant neoplasm of bladder, unspecified
CPT/HCPCS: 36415; 80053; 84100; 85025

== ENCOUNTER 2022-09-02 20:36 | Emergency (ER) | payer OTHER, SELFPAY ==
[2022-09-02 20:39] VITALS: BP 144/86; PULSE 96; RESP 16; TEMP 37; O2SAT 99; BMI 19.5
--- NOTE | 2022-09-02 21:26 | ED_ITS ---
HPI - Female Genitourinary General Chief complaint: Urogenital-Female Stated complaint: Thinks UTI Time Seen by Provider: 09/02/22 20:40 Mode of arrival: Ambulatory History of Present Illness HPI Narrative: 56-year-old female nonsmoker with history of renal and bladder cancer presents with her in the chief complaint of about 12 hours of urinary frequency and urgency as well as cloudy urine. She is had multiple urinary tract infections in the past states this is quite similar to prior. She is currently on a ?drug holiday? from her immunosuppressants. She denies any systemic complaints such as dizziness, weakness or lightheadedness. She has no fever or chills nor nausea, vomiting or back pain. Related Data Home Medications Medication Instructions Recorded Confirmed erdafitinib 3 mg tablet (Balversa) 6 mg PO DAILY 05/05/22 05/19/22 morphine 15 mg tablet,extended 15 mg PO Q12H 05/05/22 05/19/22 release sevelamer carbonate 800 mg tablet 800 mg PO TID 05/05/22 05/19/22 Previous Rx's Medication Instructions Recorded triamcinolone acetonide 0.025 % 1 applictn topical BID PRN excema 10/17/19 topical ointment #15 grams ondansetron 4 mg disintegrating 4 mg PO TID-QID PRN nausea and 09/13/20 tablet vomiting #10 tabs handicap placard #2 ea 09/28/20 epinephrine 0.3 mg/0.3 mL 0.3 mg (0.3 mL) IM SEE 05/19/22 injection, auto-injector (EpiPen INSTRUCTIONS #1 kit 2-Darell) albuterol sulfate 90 mcg/actuation See Rx Instructions .Route 07/11/22 aerosol inhaler .COMPLEX #8.5 grams cephalexin 500 mg capsule 500 mg PO BID #10 caps 09/02/22 fluconazole 150 mg tablet 150 mg PO Q3D 2 doses #2 tabs 09/02/22 Allergies Allergy/AdvReac Type Severity Reaction Status Date / Time peanut Allergy Severe Anaphylaxis Verified 05/19/22 14:04 sulfamethoxazole Allergy Severe itching Verified 05/19/22 14:04 [From ] trimethoprim [From ] Allergy Severe itching Verified 05/19/22 14:04 Sulfa (Sulfonamide Allergy hives and Verified 05/19/22 14:04 Antibiotics) swelling valacyclovir AdvReac Severe kidney Verified 05/19/22 14:04 injury Review of Systems Review of Systems Narrative: GENERAL: Denies chills, fatigue, malaise, fever, sweats. HEENT: Denies sinus pain, ear pain, sore throat, difficulty swallowing, dizziness. RESPIRATORY: Denies dyspnea, cough, wheezing, hemoptysis, sputum. CARDIOVASCULAR: Denies chest pain, palpitations, orthopnea, edema, GASTROINTESTINAL: Denies nausea, vomiting, abdominal pain, diarrhea, constipation, melena. : See HPI MUSCULOSKELETAL: denies weakness, joint pain, or bony pain SKIN: Denies rash, skin lesions, or other NEUROLOGIC: Denies weakness, headache, numbness, change in speech, confusion, seizures, incoordination. PSYCHIATRIC: No concerning psychosocial issues. 12 point review of systems is negative except for those stated above Patient History Medical History Allergic reaction to adhesive Allergies Anemia Asthma Cancer of right renal pelvis Chronic back pain (~2020) Eczema Family history of melanoma Fibroids Foot pain (~2020) History of kidney cancer (~2018) Lumbar pain Metastatic urothelial carcinoma (11/2019) Numbness Osseous metastasis Ovarian cyst Pain of metastatic malignancy Sacroiliac joint pain Strain of right hip Umbilical hernia (02/2020) Urothelial cancer UTI (urinary tract infection) Wears glasses Surgical History Anesthesia Bladder tumor (~2019) H/O right nephrectomy (~07/24/19) History of biopsy (~2018) History of kidney surgery (~12/2019) History of third molar tooth extraction (1981) Status post delivery (03/05/89) Status post delivery (01/21/91) Family History Father Cancer Hyperlipidemia Hypertension Mother Diabetes mellitus History of heart disease Hypertension Hyperlipidemia TIA (transient ischemic attack) Breast cancer Brother Hypertension Melanoma Hyperlipidemia Brother Hypertension Brother Hypertension Sister Cancer Hyperlipidemia Hypertension Sister Diabetes mellitus Hyperlipidemia Hypertension Grandfather History of heart disease Grandmother History of heart disease alcohol intake frequency: 0-2 drinks per day Substance Use Type: does not use Exam Narrative Exam Narrative: GEN: AOx3 and in mild distress EYES: Pupils are equal, round, and reactive to light and accommodation. Extraoccular muscles are intact bilaterally. There is no subconjunctival hemorrhage or exudate. CHEST: Lungs are clear to auscultation bilaterally and free of wheezes, rales, or rhonchi. Heart rate is regular rhythm, there are no murmurs, clicks, rubs, or gallops. There is no chest wall tenderness. ABD: Abdomen is soft and nontender. There is no guarding or rebound. Bowel sounds are normal in all 4 quadrants. There is no mass or organomegaly. EXT: Full painless ROM of all extremities with no loss of sensation or strength. BACK: No CVA tenderness SKIN: Warm, pink, and dry. No erythema or rash Initial Vital Signs Initial Vital Signs: Vital Signs Temperature 98.6 F 09/02/22 20:39 Pulse Rate 96 H 09/02/22 20:39 Respiratory Rate 16 09/02/22 20:39 Blood Pressure 144/86 H 09/02/22 20:39 Pulse Oximetry 99 09/02/22 20:39 Oxygen Delivery Method 09/02/22 20:39 Course Orders Ordered: ED Orders 09/02/22 20:50 Urine Culture Stat Urine Microscopic Stat Discontinued Medications Cefazolin Sodium (Cephalexin 250 Mg Prepack) 1 bottle MISC SEEINSTR ONE Stop: 09/02/22 21:28 Last Admin: 09/02/22 21:39 Dose: 500 mg Documented By: CHAGO Vital Signs Vital signs: Vital Signs - 8 hr 09/02/22 20:39 Temperature 98.6 F Pulse Rate 96 H Respiratory Rate 16 Blood Pressure 144/86 H Pulse Oximetry 99 Oxygen Delivery Method Room Air MDM - Female Genitourinary Lab Data Labs: Lab Results 09/02/22 Range/Units 20:50 Urine RBC 10-30/hpf H (0-5/HPF) Urine WBC 30-100/hpf H (0-5/HPF) Urine Bacteria Few (2-10) H (None) Micro UA Comment * Urine Dip Bedside Urine Glucose Negative Bedside Urine Bilirubin - Negative Bedside Urine Ketone - Negative Urine Specific [place] 1.015 Bedside Urine Occult Blood +++ Bedside Urine pH 6.5 Bedside Urine Protein ++ 100 Bedside Urine Urobilinogen - Negative Bedside Urine Nitrite - Negative Bedside Urine Leukocytes ++ 125 Esterase MDM Narrative Medical decision making narrative: CC: 56F with UTI symptoms at 12 hours Complicating co-morbidities: Age, renal cancer Data collected from: Patient Medical records reviewed: Prior notes reviewed in our EMR Differential considered, but not limited to: UTI, pyelonephritis, vs. other Exam documented above, pertinent findings include: Stable vitals, no tachycardia, increased work of breathing, abdomen or flank pain Lab Test results independently reviewed as above. Pertinent findings: UA consistent with UTI, prior micro consulted Treatments: Keflex prepack Discussion: Patient with 12 hours of classic UTI symptoms in the absence of systemic complaints. Urine suggestive of infection, no evidence of pyelonephritis. No further workup needed at this time. Prior cultures consulted and Keflex appropriate Disposition: see below, along with detailed discharge instructions that have been reviewed with patient as well as indications for ED re-evaluation and additional outpatient follow up Discharge Plan Departure Patient Disposition: Home Clinical Impression: UTI (urinary tract infection) Instructions: DI for Urinary Tract Infection (UTI) Activity Restrictions/Additional Instructions: *You have been diagnosed with [urinary tract infection] *What to do: *Please continue to take your regular medications as directed. [ x] New medication prescriptions sent to your pharmacy: [ [facility]] [ ] New medication written as a paper prescription [ ] No new medications given *Please follow up with your primary care provider in 2-3 days, call for an appointment. Let them know you were seen in the Emergency Department and that we ask that you be seen in follow up. We will electronically transmit a record of today's note if your PCP is in our system *Return to Emergency Department if you should have any new, worsening or concerning symptoms, such as [fever greater than 101 F, shaking chills, worsening pain, persistent vomiting or other bothersome symptoms] Prescriptions: New fluconazole 150 mg tablet 150 mg PO Q3D Qty: 2 0RF Rx Instructions: may repeat second dose 72 hrs after first dose if symptoms persist cephalexin 500 mg capsule 500 mg PO BID Qty: 10 0RF No Action triamcinolone acetonide 0.025 % ointment 1 applictn TOP BID PRN (Reason: excema) Qty: 15 5RF (DME) handicap placard See Rx Instructions .Route .MEDSUPPLY Qty: 2 0RF Rx Instructions: Patient satisfies requirement for handicap placard x 2 albuterol sulfate 90 mcg/actuation HFA aerosol inhaler See Rx Instructions .ROUTE .COMPLEX Qty: 8.5 0RF Dose Instruction: INHALE 2 PUFFS BY MOUTH FOUR TIMES DAILY NEEDED FOR ALLERGIC ASTHMA Rx Instructions: INHALE 2 PUFFS BY MOUTH FOUR TIMES DAILY NEEDED FOR ALLERGIC ASTHMA Balversa 3 mg tablet 6 mg PO DAILY morphine 15 mg tablet extended release 15 mg PO Q12H sevelamer carbonate 800 mg tablet 800 mg PO TID Rx Instructions: must administer with a meal/food epinephrine [EpiPen 2-Darell] 0.3 mg/0.3 mL auto-injector 0.3 mg IM SEE INSTRUCTIONS Qty: 1 1RF ondansetron 4 mg tablet,disintegrating 4 mg PO TID-QID PRN (Reason: nausea and vomiting) Qty: 10 0RF Referrals: Florence Lopez DO [Primary Care Provider] - Stand Alone Forms: Patient Portal/API
[2022-09-02 21:37] LABS: RBC Urine 10-30/HPF (0-5/HPF); WBC Urine 30-100/HPF (0-5/HPF)
[2022-09-02 21:38] LABS: Bacteria Urine Few (2-10)
[2022-09-02] MEDS: cephALEXin 250 MG PREPACK 1 BOTTLE MISC (21:39)
== END 2022-09-02 21:40 | disposition home or self-care (01) ==
PROVIDERS: Emergency Provider Emergency Medicine; PCP Family Medicine
DX: N39.0 Urinary tract infection, site not specified (principal)
CPT/HCPCS: 81003; 81015; 87077; 87086; 87186; 99281; 99283

== ENCOUNTER → 2022-12-08 08:31 | Outpatient (CLI) | payer OTHER, SELFPAY ==
[2022-12-08 08:44] LABS: Add Manual Diff / Slide Review NO; Basophils Absolute Auto 0 /uL (0-100); Basophils Percent Auto 0.7 % (0-2); Eosinophils Absolute Auto 200 /uL (0-450); Eosinophils Percent Auto 3.9 % (2-4); Hematocrit 31.6 % (36-46); Hemoglobin 10.5 g/dL (12.0-16.0); Lymphocytes Absolute Auto 2200 /uL (1100-4500); Mean Corpuscular HGB Conc 33.4 % (30-36); Mean Corpuscular Hemoglobin 28.7 PG (26-34); Mean Corpuscular Volume 86.1 fL (80-100); Monocytes Absolute Auto 400 /uL (0-900); Monocytes Percent Auto 7.1 % (3-14); Neutrophils Absolute Auto 2200 /uL (1500-7000); Neutrophils Percent Auto 43.3 % (50-75); Platelet Count 202 X10^3/uL (150-400); Red Blood Cell Count 3.67 X10^6/uL (4.0-5.2); Red Cell Distribution Width 14.8 % (11.6-14.8)
[2022-12-08 08:57] LABS: Alanine Aminotransferase 36 IU/L (<35); Albumin 3.9 g/dL (3.5-5.0); Albumin Globulin Ratio 1.1 (1.0-2.8); Alkaline Phosphatase 69 U/L (38-126); Aspartate Aminotransferase 30 IU/L (14-36); BUN Creatinine Ratio 13.5 (6-22); Bilirubin Total 0.7 mg/dL (0.2-1.3); Blood Urea Nitrogen 13 mg/dL (7-17); Calcium 9.2 mg/dL (8.4-10.2); Carbon Dioxide 28 mmol/L (22-32); Chloride 103 mmol/L (98-107); Estimated Glomerular Filt Rate > 60 mL/min (>60); Globulin 3.4 g/dL (1.7-4.1); Glucose 104 mg/dL (70-100); HEMOLYSIS < 15 (0-50); Sodium 138 mmol/L (137-145); Total Protein 7.3 g/dL (6.3-8.2)
== END ==
PROVIDERS: PCP Family Medicine; Referring Provider Nurse Practitioner Family; Visit Provider Nurse Practitioner Family
DX: C79.10 Secondary malignant neoplasm of unspecified urinary organs (principal)
CPT/HCPCS: 36415; 80053; 85025

== ENCOUNTER → 2022-12-12 08:45 | Outpatient (CLI) | payer OTHER, SELFPAY ==
[2022-12-12 15:39] LABS: Add Manual Diff / Slide Review NO; Basophils Absolute Auto 100 /uL (0-100); Basophils Percent Auto 0.8 % (0-2); Eosinophils Absolute Auto 100 /uL (0-450); Eosinophils Percent Auto 2.3 % (2-4); Hematocrit 31.1 % (36-46); Hemoglobin 10.6 g/dL (12.0-16.0); Lymphocytes Absolute Auto 2500 /uL (1100-4500); Lymphocytes Percent Auto 39.2 % (25-40); Mean Corpuscular HGB Conc 34.1 % (30-36); Mean Corpuscular Hemoglobin 29.4 PG (26-34); Mean Corpuscular Volume 86.1 fL (80-100); Monocytes Absolute Auto 500 /uL (0-900); Monocytes Percent Auto 8.5 % (3-14); Neutrophils Absolute Auto 3100 /uL (1500-7000); Neutrophils Percent Auto 49.2 % (50-75); Platelet Count 235 X10^3/uL (150-400); Red Blood Cell Count 3.61 X10^6/uL (4.0-5.2); Red Cell Distribution Width 14.7 % (11.6-14.8); White Blood Cell Count 6.3 X10^3/uL (4.5-11.0)
[2022-12-12 15:53] LABS: Alanine Aminotransferase 38 IU/L (<35); Albumin 4.1 g/dL (3.5-5.0); Albumin Globulin Ratio 1.1 (1.0-2.8); Alkaline Phosphatase 96 U/L (38-126); Aspartate Aminotransferase 33 IU/L (14-36); BUN Creatinine Ratio 14.7 (6-22); Bilirubin Total 0.4 mg/dL (0.2-1.3); Blood Urea Nitrogen 14 mg/dL (7-17); Calcium 9.5 mg/dL (8.4-10.2); Carbon Dioxide 29 mmol/L (22-32); Chloride 100 mmol/L (98-107); Estimated Glomerular Filt Rate > 60 mL/min (>60); Globulin 3.7 g/dL (1.7-4.1); Glucose 110 mg/dL (70-100); HEMOLYSIS < 15 (0-50); Potassium 3.7 mmol/L (3.4-5.1); Sodium 138 mmol/L (137-145); Total Protein 7.8 g/dL (6.3-8.2)
== END ==
PROVIDERS: PCP Family Medicine; Referring Provider Nurse Practitioner Family; Visit Provider Nurse Practitioner Family
DX: C79.10 Secondary malignant neoplasm of unspecified urinary organs (principal)
CPT/HCPCS: 36415; 80053; 85025

== ENCOUNTER → 2023-02-16 09:34 | Outpatient (CLI) | payer OTHER, SELFPAY ==
[2023-02-16 10:28] LABS: Cholesterol 171 mg/dL (140-199); HDL Cholesterol 53 mg/dL (40-60); LDL Cholesterol Calculated 97 mg/dL (<100); Triglycerides 107 mg/dL (35-150)
== END ==
PROVIDERS: PCP Family Medicine; Referring Provider Family Medicine; Visit Provider Family Medicine
DX: E78.2 Mixed hyperlipidemia (principal)
CPT/HCPCS: 36415; 80061

== ENCOUNTER 2023-02-20 18:22 | Emergency (ER) | payer OTHER, SELFPAY ==
[2023-02-20 18:28] VITALS: BP 143/77; PULSE 94; RESP 18; TEMP 37.3; O2SAT 99; BMI 20.7
--- NOTE | 2023-02-20 20:24 | ED.GENADULT ---
HPI - General Adult General Chief complaint: Eye Problems Stated complaint: Poss retinal tear Time Seen by Provider: 02/20/23 19:32 Source: patient Mode of arrival: Family Vehicle History of Present Illness HPI narrative: Patient is a 57-year-old female. Is here for evaluation of what she describes as bright flashes to her right. States she was in a fairly dark room when the symptoms occurred. She states it only lasted for a few seconds and then resolved. She currently has no vision changes. She denies headache. She does have a retina specialist that she sees because of ?retinal tears? that she had in her left eye in the past. These were found on a routine eye exam but when she thought about the symptoms she was having the time she stated that she did have some flashes. She contacted her retina specialist who advised she come to the emergency department. Here in the emergency department she does not have any symptoms to include double vision, headache, blurry vision, no black spots in her visual palafox. She has a grid on her refrigerator that she was given by her eye doctor and when she looked that occurred she did not notice any vision changes. Related Data Home Medications Medication Instructions Recorded Confirmed erdafitinib 3 mg tablet (Balversa) 6 mg PO DAILY 05/05/22 10/18/22 morphine 15 mg tablet,extended 15 mg PO Q12H 05/05/22 10/18/22 release sevelamer carbonate 800 mg tablet 800 mg PO TID 05/05/22 10/18/22 Previous Rx's Medication Instructions Recorded triamcinolone acetonide 0.025 % 1 applictn topical BID PRN excema 10/17/19 topical ointment #15 grams ondansetron 4 mg disintegrating 4 mg PO TID-QID PRN nausea and 09/13/20 tablet vomiting #10 tabs handicap placard #2 ea 09/28/20 epinephrine 0.3 mg/0.3 mL 0.3 mg (0.3 mL) IM SEE 05/19/22 injection, auto-injector (EpiPen INSTRUCTIONS #1 kit 2-Darell) albuterol sulfate 90 mcg/actuation See Rx Instructions .Route 07/11/22 aerosol inhaler .COMPLEX #8.5 grams fluconazole 150 mg tablet 150 mg PO Q3D 2 doses #2 tabs 09/02/22 Allergies Allergy/AdvReac Type Severity Reaction Status Date / Time peanut Allergy Severe Anaphylaxis Verified 02/20/23 18:38 sulfamethoxazole Allergy Severe itching Verified 02/20/23 18:38 [From ] trimethoprim [From ] Allergy Severe itching Verified 02/20/23 18:38 Sulfa (Sulfonamide Allergy hives and Verified 02/20/23 18:38 Antibiotics) swelling valacyclovir AdvReac Severe kidney Verified 02/20/23 18:38 injury Review of Systems Constitutional Constitutional: Reports system reviewed and no additional complaints, except as documented Eyes Eyes: Reports system reviewed and no additional complaints, except as documented ENT Ears, Nose, Mouth, and Throat: Reports system reviewed and no additional complaints, except as documented Neurologic Neurologic: Reports system reviewed and no additional complaints, except as documented Patient History Medical History Allergic reaction to adhesive Allergies Anemia Asthma Cancer of right renal pelvis Chronic back pain (~2020) Eczema Family history of melanoma Fibroids Foot pain (~2020) History of kidney cancer (~2018) Lumbar pain Metastatic urothelial carcinoma (11/2019) Numbness Osseous metastasis Ovarian cyst Pain of metastatic malignancy Retinal tear (~2021) Sacroiliac joint pain Strain of right hip Umbilical hernia (02/2020) Urothelial cancer UTI (urinary tract infection) Wears glasses Surgical History Anesthesia Bladder tumor (~2019) H/O right nephrectomy (~07/24/19) History of biopsy (~2018) History of kidney surgery (~12/2019) History of third molar tooth extraction (1981) Status post delivery (03/05/89) Status post delivery (01/21/91) Family History Father Cancer Hyperlipidemia Hypertension Mother Diabetes mellitus History of heart disease Hypertension Hyperlipidemia TIA (transient ischemic attack) Breast cancer Brother Hypertension Melanoma Hyperlipidemia Brother Hypertension Brother Hypertension Sister Cancer Hyperlipidemia Hypertension Sister Diabetes mellitus Hyperlipidemia Hypertension Grandfather History of heart disease Grandmother History of heart disease Social History Smoking Status: Never smoker Smoking Status: Never smoker alcohol intake frequency: 0-2 drinks per day Substance Use Type: does not use Exam Initial Vital Signs Initial Vital Signs: Vital Signs Temperature 99.1 F 02/20/23 18:28 Pulse Rate 94 H 02/20/23 18:28 Respiratory Rate 18 02/20/23 18:28 Blood Pressure 143/77 H 02/20/23 18:28 Pulse Oximetry 99 02/20/23 18:28 Oxygen Delivery Method Room Air 02/20/23 18:28 Const General: cooperative and comfortable Eyes General: Yes appearance normal, both eyes and all related structures Visual Palafox: normal visual palafox by confrontation Periorbital: periorbital findings normal Eyelids: eyelids normal Pupils: PERRL EOM: EOM intact bilaterally Skin General: no rashes or lesions noted Neuro General: patient alert and patient awake Course Vital Signs Vital signs: Vital Signs - 8 hr 02/20/23 20:44 02/20/23 20:44 02/20/23 20:46 Pulse Rate 100 H 95 H Blood Pressure 133/83 Pulse Oximetry 98 98 Oxygen Delivery Method Room Air 02/20/23 21:28 Pulse Rate 86 Blood Pressure 144/80 H Pulse Oximetry 99 Oxygen Delivery Method Medical Decision Making MDM Narrative Medical decision making narrative: Patient had flashes in her right eye earlier but all the symptoms have resolved. Bedside ultrasound does not show any retinal detachment. Given the complete resolution of her symptoms and that she does have an established retinal specialist plan will be to discharge the patient home and have her contact the retinal specialist in the morning for follow-up. She was given return precautions and follow-up instructions. She expressed understanding and agreement. Discharge Plan Departure Patient Disposition: Home Clinical Impression: Alteration in vision Activity Restrictions/Additional Instructions: Recommend that you continue to take all of your medications as directed and in the morning contact your regular redness specialists for a follow-up. Return to the emergency department for new or worsening symptoms. Prescriptions: No Action triamcinolone acetonide 0.025 % ointment 1 applictn TOP BID PRN (Reason: excema) Qty: 15 5RF (DME) handicap placard See Rx Instructions .Route .MEDSUPPLY Qty: 2 0RF Rx Instructions: Patient satisfies requirement for handicap placard x 2 albuterol sulfate 90 mcg/actuation HFA aerosol inhaler See Rx Instructions .ROUTE .COMPLEX Qty: 8.5 0RF Dose Instruction: INHALE 2 PUFFS BY MOUTH FOUR TIMES DAILY NEEDED FOR ALLERGIC ASTHMA Rx Instructions: INHALE 2 PUFFS BY MOUTH FOUR TIMES DAILY NEEDED FOR ALLERGIC ASTHMA Balversa 3 mg tablet 6 mg PO DAILY morphine 15 mg tablet extended release 15 mg PO Q12H sevelamer carbonate 800 mg tablet 800 mg PO TID Rx Instructions: must administer with a meal/food epinephrine [EpiPen 2-Darell] 0.3 mg/0.3 mL auto-injector 0.3 mg IM SEE INSTRUCTIONS Qty: 1 1RF ondansetron 4 mg tablet,disintegrating 4 mg PO TID-QID PRN (Reason: nausea and vomiting) Qty: 10 0RF fluconazole 150 mg tablet 150 mg PO Q3D Qty: 2 0RF Rx Instructions: may repeat second dose 72 hrs after first dose if symptoms persist Referrals: Florence Lopez DO [Primary Care Provider] - Stand Alone Forms: Patient Portal/API
[2023-02-20 20:44] VITALS: BP 133/83; PULSE 100; O2SAT 98
[2023-02-20 20:46] VITALS: PULSE 95; O2SAT 98
[2023-02-20 21:28] VITALS: BP 144/80; PULSE 86; O2SAT 99
== END 2023-02-20 21:35 | disposition home or self-care (01) ==
PROVIDERS: Emergency Provider Emergency Medicine; PCP Family Medicine
DX: H54.7 Unspecified visual loss (principal)
CPT/HCPCS: 99281

== ENCOUNTER → 2023-03-02 14:30 | Outpatient (CLI) | payer OTHER, SELFPAY ==
[2023-03-02 15:09] LABS: Appearance Urine UA SL CLOUDY; Bilirubin Urine UA NEGATIVE (NEGATIVE); Color Urine UA YELLOW; Glucose Urine UA NEGATIVE (Negative); Ketones Urine UA NEGATIVE (NEGATIVE); Leukocyte Esterase Urine UA 3+ (NEGATIVE); Nitrite Urine UA NEGATIVE (Negative); Occult Blood Urine UA TRACE-INTACT (Negative); Protein Urine UA NEGATIVE (Negative); Specific Gravity Urine UA <=1.005 (1.000-1.035); Urobilinogen Urine UA 0.2 E.U./dL (0.2)
[2023-03-02 15:19] LABS: pH Urine UA 5.5 (4.5-8.0)
[2023-03-02 15:21] LABS: Bacteria Urine Moderate (10-30); Culture Indicated Urine Specimen Cultured; RBC Urine 0-1/HPF (0-5/HPF); Squamous Epithelial Cell Urine 0-1 /HPF (0-5/HPF); WBC Urine 30-100/HPF (0-5/HPF)
[2023-03-02 15:35] LABS: Add Manual Diff / Slide Review NO; Basophils Absolute Auto 0 /uL (0-100); Basophils Percent Auto 0.5 % (0-2); Eosinophils Absolute Auto 100 /uL (0-450); Eosinophils Percent Auto 1.6 % (2-4); Hematocrit 27.8 % (36-46); Hemoglobin 9.3 g/dL (12.0-16.0); Lymphocytes Absolute Auto 2700 /uL (1100-4500); Mean Corpuscular HGB Conc 33.3 % (30-36); Mean Corpuscular Hemoglobin 27.5 PG (26-34); Mean Corpuscular Volume 82.7 fL (80-100); Monocytes Absolute Auto 800 /uL (0-900); Monocytes Percent Auto 9.3 % (3-14); Neutrophils Absolute Auto 4500 /uL (1500-7000); Neutrophils Percent Auto 55.6 % (50-75); Platelet Count 287 X10^3/uL (150-400); Red Blood Cell Count 3.36 X10^6/uL (4.0-5.2); Red Cell Distribution Width 16.1 % (11.6-14.8); White Blood Cell Count 8.1 X10^3/uL (4.5-11.0)
[2023-03-02 16:09] LABS: Alanine Aminotransferase 40 IU/L (<35); Albumin 3.7 g/dL (3.5-5.0); Alkaline Phosphatase 145 U/L (38-126); Aspartate Aminotransferase 32 IU/L (14-36); BUN Creatinine Ratio 16.9 (6-22); Bilirubin Total 0.5 mg/dL (0.2-1.3); Blood Urea Nitrogen 14 mg/dL (7-17); Calcium 10.1 mg/dL (8.4-10.2); Carbon Dioxide 26 mmol/L (22-32); Chloride 100 mmol/L (98-107); Estimated Glomerular Filt Rate > 60 mL/min (>60); Globulin 3.6 g/dL (1.7-4.1); Glucose 107 mg/dL (70-100); HEMOLYSIS < 15 (0-50); Potassium 4.1 mmol/L (3.4-5.1); Sodium 135 mmol/L (137-145); Total Protein 7.3 g/dL (6.3-8.2)
== END ==
PROVIDERS: PCP Family Medicine; Referring Provider Nurse Practitioner Family; Visit Provider Nurse Practitioner Family
DX: C79.10 Secondary malignant neoplasm of unspecified urinary organs (principal)
CPT/HCPCS: 36415; 80053; 81001; 85025; 87077; 87086; 87186

== ENCOUNTER → 2023-03-16 11:32 | Outpatient (CLI) | payer OTHER, SELFPAY ==
[2023-03-16 12:01] LABS: Add Manual Diff / Slide Review NO; Basophils Absolute Auto 0 /uL (0-100); Basophils Percent Auto 0.6 % (0-2); Eosinophils Absolute Auto 100 /uL (0-450); Eosinophils Percent Auto 2.2 % (2-4); Hematocrit 27.4 % (36-46); Hemoglobin 9.1 g/dL (12.0-16.0); Lymphocytes Absolute Auto 1600 /uL (1100-4500); Lymphocytes Percent Auto 25.7 % (25-40); Mean Corpuscular HGB Conc 33.1 % (30-36); Mean Corpuscular Hemoglobin 27.3 PG (26-34); Mean Corpuscular Volume 82.5 fL (80-100); Monocytes Absolute Auto 600 /uL (0-900); Monocytes Percent Auto 8.7 % (3-14); Neutrophils Absolute Auto 4000 /uL (1500-7000); Neutrophils Percent Auto 62.8 % (50-75); Platelet Count 318 X10^3/uL (150-400); Red Blood Cell Count 3.32 X10^6/uL (4.0-5.2); White Blood Cell Count 6.4 X10^3/uL (4.5-11.0)
[2023-03-16 12:35] LABS: Alanine Aminotransferase 42 IU/L (<35); Albumin 3.8 g/dL (3.5-5.0); Alkaline Phosphatase 124 U/L (38-126); Aspartate Aminotransferase 40 IU/L (14-36); BUN Creatinine Ratio 15.9 (6-22); Bilirubin Total 0.3 mg/dL (0.2-1.3); Blood Urea Nitrogen 13 mg/dL (7-17); Calcium 10.1 mg/dL (8.4-10.2); Carbon Dioxide 29 mmol/L (22-32); Chloride 103 mmol/L (98-107); Estimated Glomerular Filt Rate > 60 mL/min (>60); Globulin 3.9 g/dL (1.7-4.1); Glucose 109 mg/dL (70-100); HEMOLYSIS < 15 (0-50); Potassium 4.2 mmol/L (3.4-5.1); Sodium 138 mmol/L (137-145); Total Protein 7.7 g/dL (6.3-8.2)
== END ==
PROVIDERS: PCP Family Medicine; Referring Provider Nurse Practitioner Family; Visit Provider Nurse Practitioner Family
DX: C79.10 Secondary malignant neoplasm of unspecified urinary organs (principal)
CPT/HCPCS: 36415; 80053; 85025

== ENCOUNTER → 2023-04-20 12:44 | Outpatient (CLI) | payer OTHER, SELFPAY ==
[2023-04-20 13:03] LABS: Add Manual Diff / Slide Review NO; Basophils Absolute Auto 100 /uL (0-100); Basophils Percent Auto 0.9 % (0-2); Eosinophils Absolute Auto 400 /uL (0-450); Eosinophils Percent Auto 6.9 % (2-4); Hematocrit 26.7 % (36-46); Hemoglobin 9.1 g/dL (12.0-16.0); Lymphocytes Absolute Auto 1400 /uL (1100-4500); Lymphocytes Percent Auto 24.3 % (25-40); Mean Corpuscular HGB Conc 34.1 % (30-36); Mean Corpuscular Hemoglobin 28.2 PG (26-34); Mean Corpuscular Volume 82.6 fL (80-100); Monocytes Absolute Auto 500 /uL (0-900); Monocytes Percent Auto 8.9 % (3-14); Neutrophils Absolute Auto 3400 /uL (1500-7000); Platelet Count 283 X10^3/uL (150-400); Red Blood Cell Count 3.24 X10^6/uL (4.0-5.2); Red Cell Distribution Width 18.7 % (11.6-14.8); White Blood Cell Count 5.7 X10^3/uL (4.5-11.0)
[2023-04-20 13:18] LABS: Phosphorous 4.6 mg/dL (2.5-4.5)
[2023-04-20 13:19] LABS: Alanine Aminotransferase 31 IU/L (<35); Albumin 3.8 g/dL (3.5-5.0); Alkaline Phosphatase 111 U/L (38-126); Aspartate Aminotransferase 25 IU/L (14-36); BUN Creatinine Ratio 16.9 (6-22); Bilirubin Total 0.4 mg/dL (0.2-1.3); Blood Urea Nitrogen 15 mg/dL (7-17); Calcium 10.6 mg/dL (8.4-10.2); Carbon Dioxide 28 mmol/L (22-32); Chloride 101 mmol/L (98-107); Estimated Glomerular Filt Rate > 60 mL/min (>60); Globulin 3.8 g/dL (1.7-4.1); Glucose 119 mg/dL (70-100); HEMOLYSIS < 15 (0-50); Potassium 4.5 mmol/L (3.4-5.1); Sodium 137 mmol/L (137-145); Total Protein 7.6 g/dL (6.3-8.2)
== END ==
PROVIDERS: PCP Family Medicine; Referring Provider Nurse Practitioner Family; Visit Provider Nurse Practitioner Family
DX: C79.10 Secondary malignant neoplasm of unspecified urinary organs (principal); C67.9 Malignant neoplasm of bladder, unspecified
CPT/HCPCS: 36415; 80053; 84100; 85025

== ENCOUNTER → 2023-07-19 15:04 | Outpatient (CLI) | payer OTHER, SELFPAY ==
[2023-07-19 19:25] LABS: Bilirubin Urine UA NEGATIVE (NEGATIVE); Color Urine UA YELLOW; Glucose Urine UA NEGATIVE (Negative); Ketones Urine UA NEGATIVE (NEGATIVE); Leukocyte Esterase Urine UA 1+ (NEGATIVE); Nitrite Urine UA NEGATIVE (Negative); Occult Blood Urine UA 3+ (Negative); Protein Urine UA 1+ (Negative); Urobilinogen Urine UA 0.2 E.U./dL (0.2)
[2023-07-19 19:33] LABS: Appearance Urine UA Slightly Cloudy
[2023-07-19 20:16] LABS: Bacteria Urine Few (2-10); RBC Urine 30-100/HPF (0-5/HPF); WBC Urine 1-5/HPF (0-5/HPF)
[2023-07-19 20:17] LABS: Culture Indicated Urine Specimen Cultured; Squamous Epithelial Cell Urine 0-1 /HPF (0-5/HPF)
== END ==
PROVIDERS: PCP Family Medicine; Referring Provider Registered Nurse; Visit Provider Registered Nurse
DX: R30.0 Dysuria (principal); C67.9 Malignant neoplasm of bladder, unspecified; R39.15 Urgency of urination
CPT/HCPCS: 81001; 87077; 87086; 87186

== ENCOUNTER → 2023-08-03 12:06 | Outpatient (CLI) | payer OTHER, SELFPAY ==
[2023-08-03 14:30] LABS: BUN Creatinine Ratio 17.4 (6-22); Blood Urea Nitrogen 12 mg/dL (7-17); Calcium 11.8 mg/dL (8.4-10.2); Carbon Dioxide 29 mmol/L (22-32); Chloride 94 mmol/L (98-107); Estimated Glomerular Filt Rate > 60 mL/min (>60); Glucose 124 mg/dL (70-100); HEMOLYSIS < 15 (0-50); Potassium 4.3 mmol/L (3.4-5.1); Sodium 130 mmol/L (137-145)
== END ==
LOC: LAB 12:08
PROVIDERS: PCP Family Medicine; Referring Provider Registered Nurse; Visit Provider Registered Nurse
DX: E83.52 Hypercalcemia (principal); C67.9 Malignant neoplasm of bladder, unspecified
CPT/HCPCS: 36415; 80048

== ENCOUNTER 2023-08-05 06:24 | Emergency (ER) | payer OTHER, SELFPAY ==
[2023-08-05] VITALS (21 sets, daily range): BP systolic 86–149; BP diastolic 51–68; PULSE 74–102; RESP 14–18; TEMP 36.8; O2SAT 96–98; BMI 19.0
[2023-08-05] MEDS: SODIUM CHLORIDE 0.9% 1,000 ML 1000 ML IV (07:04)
[2023-08-05 07:08] LABS: Add Manual Diff / Slide Review NO; Basophils Absolute Auto 100 /uL (0-100); Basophils Percent Auto 0.6 % (0-2); Eosinophils Absolute Auto 100 /uL (0-450); Eosinophils Percent Auto 0.7 % (2-4); Hematocrit 26.6 % (36-46); Hemoglobin 8.9 g/dL (12.0-16.0); Lymphocytes Absolute Auto 900 /uL (1100-4500); Lymphocytes Percent Auto 8.2 % (25-40); Mean Corpuscular HGB Conc 33.5 % (30-36); Mean Corpuscular Hemoglobin 27.1 PG (26-34); Mean Corpuscular Volume 80.8 fL (80-100); Monocytes Absolute Auto 800 /uL (0-900); Monocytes Percent Auto 7.8 % (3-14); Neutrophils Absolute Auto 8600 /uL (1500-7000); Neutrophils Percent Auto 82.7 % (50-75); Platelet Count 367 X10^3/uL (150-400); Red Blood Cell Count 3.29 X10^6/uL (4.0-5.2); Red Cell Distribution Width 18.2 % (11.6-14.8); White Blood Cell Count 10.4 X10^3/uL (4.5-11.0)
[2023-08-05 07:22] LABS: Alanine Aminotransferase 16 IU/L (<35); Albumin 3.5 g/dL (3.5-5.0); Albumin Globulin Ratio 0.9 (1.0-2.8); Alkaline Phosphatase 199 U/L (38-126); Aspartate Aminotransferase 24 IU/L (14-36); BUN Creatinine Ratio 16.4 (6-22); Bilirubin Total 0.7 mg/dL (0.2-1.3); Blood Urea Nitrogen 10 mg/dL (7-17); Carbon Dioxide 28 mmol/L (22-32); Chloride 95 mmol/L (98-107); Estimated Glomerular Filt Rate > 60 mL/min (>60); Globulin 3.9 g/dL (1.7-4.1); Glucose 145 mg/dL (70-100); HEMOLYSIS < 15 (0-50); Phosphorous 2.7 mg/dL (2.5-4.5); Potassium 4.2 mmol/L (3.4-5.1); Sodium 130 mmol/L (137-145); Total Protein 7.4 g/dL (6.3-8.2)
--- NOTE | 2023-08-05 07:32 | ED_ITS ---
HPI - General Adult General Chief complaint: Abdominal Pain Stated complaint: hypercalcinea- cancer pt list if symtp to come in Time Seen by Provider: 08/05/23 06:31 Source: patient and family Mode of arrival: Family Vehicle Limitations: no limitations History of Present Illness HPI narrative: Patient is a 57-year-old female. Currently undergoing treatment for kidney cancer. Had chemotherapy just under 1 week ago. Since that time has had issues with constipation but that issue has improved with medications. She is having back pain. She states that it is her normal back pain but it is worse than normal. Her normal pain medication is not helping. No fevers. No chest pain. She did have some lower abdominal pain which improved somewhat with having a bowel movement but it is still sensitive? she had labs drawn at the end of last week showed an elevated calcium. She was given instructions that if she had muscle weakness or abdominal pain or nausea vomiting that she should come to the emergency department because it could be her elevated calcium. Related Data Home Medications Medication Instructions Recorded Confirmed erdafitinib 3 mg tablet (Balversa) 6 mg PO DAILY 05/05/22 10/18/22 morphine 15 mg tablet,extended 15 mg PO Q12H 05/05/22 10/18/22 release sevelamer carbonate 800 mg tablet 800 mg PO TID 05/05/22 10/18/22 Previous Rx's Medication Instructions Recorded triamcinolone acetonide 0.025 % 1 applictn topical BID PRN excema 10/17/19 topical ointment #15 grams ondansetron 4 mg disintegrating 4 mg PO TID-QID PRN nausea and 09/13/20 tablet vomiting #10 tabs handicap placard #2 ea 09/28/20 epinephrine 0.3 mg/0.3 mL 0.3 mg (0.3 mL) IM SEE 05/19/22 injection, auto-injector (EpiPen INSTRUCTIONS #1 kit 2-Darell) albuterol sulfate 90 mcg/actuation See Rx Instructions .Route 07/11/22 aerosol inhaler .COMPLEX #8.5 grams fluconazole 150 mg tablet 150 mg PO Q3D 2 doses #2 tabs 09/02/22 hydromorphone 2 mg tablet 2 mg PO Q4-6H PRN pain #14 tabs 08/05/23 (Dilaudid) Allergies Allergy/AdvReac Type Severity Reaction Status Date / Time peanut Allergy Severe Anaphylaxis Verified 08/05/23 07:17 sulfamethoxazole Allergy Severe itching Verified 08/05/23 07:17 [From ] trimethoprim [From ] Allergy Severe itching Verified 08/05/23 07:17 Sulfa (Sulfonamide Allergy hives and Verified 08/05/23 07:17 Antibiotics) swelling oxycodone AdvReac Severe Vomiting Verified 08/05/23 07:17 valacyclovir AdvReac Severe kidney Verified 08/05/23 07:17 injury adhesive AdvReac Intermediate Rash Verified 08/05/23 07:17 Review of Systems Review of Systems ROS Unobtainable: All systems reviewed & are unremarkable except as noted in HPI and below Patient History Medical History Allergic reaction to adhesive Numbness Foot pain (~2020) Chronic back pain (~2020) Anemia Retinal tear (~2021) Urothelial cancer Osseous metastasis Pain of metastatic malignancy Metastatic urothelial carcinoma (11/2019) Wears glasses Eczema Allergies Ovarian cyst Fibroids History of kidney cancer (~2018) Sacroiliac joint pain Lumbar pain Family history of melanoma Umbilical hernia (02/2020) Strain of right hip UTI (urinary tract infection) Cancer of right renal pelvis Asthma Surgical History Anesthesia Bladder tumor (~2019) History of kidney surgery (~12/2019) History of biopsy (~2018) H/O right nephrectomy (~07/24/19) Status post delivery (01/21/91) Status post delivery (03/05/89) History of third molar tooth extraction (1981) Family History Father Cancer Hyperlipidemia Hypertension Mother Diabetes mellitus History of heart disease Hypertension Hyperlipidemia TIA (transient ischemic attack) Breast cancer Brother Hypertension Melanoma Hyperlipidemia Brother Hypertension Brother Hypertension Sister Cancer Hyperlipidemia Hypertension Sister Diabetes mellitus Hyperlipidemia Hypertension Grandfather History of heart disease Grandmother History of heart disease Social History Smoking Status: Never smoker Smoking Status: Never smoker alcohol intake frequency: 0-2 drinks per day Substance Use Type: does not use Exam Initial Vital Signs Initial Vital Signs: Vital Signs Temperature 98.3 F 08/05/23 06:26 Pulse Rate 94 H 08/05/23 06:26 Respiratory Rate 16 08/05/23 06:26 Blood Pressure 149/68 H 08/05/23 06:26 Pulse Oximetry 98 08/05/23 06:26 Oxygen Delivery Method Room Air 08/05/23 06:26 [facility] Head: normal to inspection and normocephalic Resp Effort & Inspection: normal respiratory effort Auscultation: clear to auscultation bilaterally Cardio Rate: regular rate Rhythm: regular rhythm GI Inspection: non-distended Neuro General: patient alert, patient awake and moves all extremities Extrem General: normal to inspection and capillary refill normal Course Orders Ordered: Discontinued Medications Hydromorphone HCl (Hydromorphone 1 Mg Inj) 1 mg IV NOW ONE Stop: 08/05/23 07:33 Last Admin: 08/05/23 07:55 Dose: 1 mg Documented By: JUSTINO Sodium Chloride (Normal Saline 0.9%) 1,000 mls @ 1,000 mls/hr IV BOLUS ONE Stop: 08/05/23 07:30 Last Infusion: 08/05/23 08:16 Dose: Infused Documented By: Admin: 08/05/23 07:04 Dose: 1,000 mls/hr Documented By: YVROSE Zoledronic Acid 4 mg/ Sodium (Chloride) 105 mls @ 315 mls/hr IV NOW ONE Stop: 08/05/23 12:52 Last Infusion: 08/05/23 14:10 Dose: Infused Documented By: Admin: 08/05/23 13:20 Dose: 315 mls/hr Documented By: JESUS Prochlorperazine (Prochlorperazine 10 Mg/2 Ml Vial) 10 mg IV NOW ONE Stop: 08/05/23 08:59 Last Admin: 08/05/23 09:42 Dose: 10 mg Documented By: JUSTINO Vital Signs Vital signs: Vital Signs - 8 hr 08/05/23 11:30 08/05/23 11:30 08/05/23 12:00 Pulse Rate 74 Respiratory Rate Blood Pressure 89/51 L 86/53 L Pulse Oximetry 97 Oxygen Delivery Method 08/05/23 12:00 08/05/23 12:30 08/05/23 12:30 Pulse Rate 75 84 Respiratory Rate 14 Blood Pressure 89/54 L Pulse Oximetry 96 97 Oxygen Delivery Method Room Air 08/05/23 13:07 08/05/23 13:30 08/05/23 13:30 Pulse Rate 102 H 92 H Respiratory Rate 18 Blood Pressure 128/66 Pulse Oximetry 96 98 Oxygen Delivery Method 08/05/23 14:00 08/05/23 14:00 08/05/23 14:30 Pulse Rate 86 Respiratory Rate Blood Pressure 121/62 124/58 L Pulse Oximetry 98 Oxygen Delivery Method Room Air 08/05/23 14:30 08/05/23 14:52 Pulse Rate 88 89 Respiratory Rate 18 Blood Pressure 124/58 L Pulse Oximetry 98 96 Oxygen Delivery Method Room Air Room Air Medical Decision Making Medical Records Medical records reviewed: Yes I reviewed the patient's medical records. Lab Data Lab results reviewed: Yes I reviewed the patient's lab results. 08/05/23 06:50 08/05/23 06:50 Labs: Lab Results 08/05/23 Range/Units 06:50 WBC 10.4 (4.5-11.0) X10^3/uL RBC 3.29 L (4.0-5.2) X10^6/uL Hgb 8.9 L (12.0-16.0) g/dL Hct 26.6 L (36-46) % MCV 80.8 (80-100) fL MCH 27.1 (26-34) PG MCHC 33.5 (30-36) % RDW 18.2 H (11.6-14.8) % Plt Count 367 (150-400) X10^3/uL Neut % (Auto) 82.7 H (50-75) % Lymph % (Auto) 8.2 L (25-40) % Jerome % (Auto) 7.8 (3-14) % Eos % (Auto) 0.7 L (2-4) % Baso % (Auto) 0.6 (0-2) % Neut # (Auto) 8600 H (0297-9115) /uL Lymph # (Auto) 900 L (9858-6227) /uL Jerome # (Auto) 800 (0-900) /uL Eos # (Auto) 100 (0-450) /uL Baso # (Auto) 100 (0-100) /uL Sodium 130 L (137-145) mmol/L Potassium 4.2 (3.4-5.1) mmol/L Chloride 95 L (98-107) mmol/L Carbon Dioxide 28 (22-32) mmol/L BUN 10 (7-17) mg/dL Creatinine 0.61 (0.52-1.04) mg/dL Estimated GFR > 60 (>60) mL/min BUN/Creatinine Ratio 16.4 (6-22) Glucose 145 H (70-100) mg/dL Calcium 12.0 H (8.4-10.2) mg/dL Phosphorus 2.7 (2.5-4.5) mg/dL Total Bilirubin 0.7 (0.2-1.3) mg/dL AST 24 (14-36) IU/L ALT 16 (<35) IU/L Alkaline Phosphatase 199 H (38-126) U/L Total Protein 7.4 (6.3-8.2) g/dL Albumin 3.5 (3.5-5.0) g/dL Globulin 3.9 (1.7-4.1) g/dL Albumin/Globulin Ratio 0.9 L (1.0-2.8) ECG Data Attestation: I personally reviewed and interpreted this ECG as follows: Interpretation: Sinus rhythm Ventricular rate 99 Normal axis Normal QRS Artifact noted V4 V5 V6 Nons[address] T wave changes MDM Narrative Medical decision making narrative: Patient reports some improvement of her symptoms after pain medication and fluids. I did discuss the case with on-call oncology at the [facility] who recommended administering Zoledronate acid. Pain was moderately controlled on her home medicines so I will prescribe Dilaudid that she can use as needed when her normal medicines is not working. Indication for admission to discharged home with return precautions follow up instructions she expressed understanding. Discharge Plan Departure Patient Disposition: Home Clinical Impression: Hypercalcemia, Cancer related pain Activity Restrictions/Additional Instructions: Continue to take all of your medications as directed and keep all of your scheduled medical appointments. Return to the emergency department for new or worsening symptoms. Prescriptions: New hydromorphone [Dilaudid] 2 mg tablet 2 mg PO Q4-6H PRN (Reason: pain) Qty: 14 0RF No Action triamcinolone acetonide 0.025 % ointment 1 applictn TOP BID PRN (Reason: excema) Qty: 15 5RF (DME) handicap placard See Rx Instructions .Route .MEDSUPPLY Qty: 2 0RF Rx Instructions: Patient satisfies requirement for handicap placard x 2 albuterol sulfate 90 mcg/actuation HFA aerosol inhaler See Rx Instructions .ROUTE .COMPLEX Qty: 8.5 0RF Dose Instruction: INHALE 2 PUFFS BY MOUTH FOUR TIMES DAILY NEEDED FOR ALLERGIC ASTHMA Rx Instructions: INHALE 2 PUFFS BY MOUTH FOUR TIMES DAILY NEEDED FOR ALLERGIC ASTHMA Balversa 3 mg tablet 6 mg PO DAILY morphine 15 mg tablet extended release 15 mg PO Q12H sevelamer carbonate 800 mg tablet 800 mg PO TID Rx Instructions: must administer with a meal/food epinephrine [EpiPen 2-Darell] 0.3 mg/0.3 mL auto-injector 0.3 mg IM SEE INSTRUCTIONS Qty: 1 1RF ondansetron 4 mg tablet,disintegrating 4 mg PO TID-QID PRN (Reason: nausea and vomiting) Qty: 10 0RF fluconazole 150 mg tablet 150 mg PO Q3D Qty: 2 0RF Rx Instructions: may repeat second dose 72 hrs after first dose if symptoms persist Referrals: Florence Lopez DO [Primary Care Provider] - Stand Alone Forms: Patient Portal/API
[2023-08-05] MEDS: HYDROMORPHONE 1 MG INJ IV (07:55)
--- NOTE | 2023-08-05 08:10 | PC.NURSE ---
Pt remains nauseated after taking her home dose zofran on the way to the ER today around 0530. She sat up at the bedside and forced herself to try and vomit, only dry heaving. Pt was given pain medications (see MAR) for her 10/10 back and low abdominal pain. Pt educated to not get up on her own after receiving medications. We put a cold, wet washcloth for comfort on her throat. She states her goal is to lay down and try to sleep. Pt remains on pulse oximeter. Her is at bedside.
[2023-08-05] MEDS: PROCHLORPERAZINE 10 MG/2 ML VIAL IV (09:42)
[2023-08-05] MEDS: ZOLEDRONIC ACID 4 MG in SODIUM CHLORIDE 0.9% 100 ML 315 MG IV (13:20)
== END 2023-08-05 14:53 | disposition home or self-care (01) ==
PROVIDERS: Emergency Medicine; Emergency Provider Emergency Medicine; PCP Family Medicine
DX: E83.52 Hypercalcemia (principal); C68.9 Malignant neoplasm of urinary organ, unspecified; R07.9 Chest pain, unspecified
CPT/HCPCS: 36415; 80053; 84100; 85025; 93005; 96361; 96365; 96375; 99284; J0780; J1170; J3489